=== PATIENT | female | born 1940 | race Caucasian/White ===

== ENCOUNTER → 2017-12-19 09:31 | Outpatient (CLI) | payer MEDICARE, OTHER, SELFPAY ==
[2017-12-19 10:53] LABS: Add Manual Diff / Slide Review NO; Basophils Percent Auto 1.3 % (0-2); Eosinophils Percent Auto 3.3 % (2-4); Hematocrit 36.3 % (36-46); Hemoglobin 11.7 g/dL (12.0-16.0); Lymphocytes Percent Auto 31.2 % (25-40); Mean Corpuscular HGB Conc 32.4 % (30-36); Mean Corpuscular Hemoglobin 30.1 PG (26-34); Mean Corpuscular Volume 92.9 fL (80-100); Monocytes Percent Auto 3.8 % (3-14); Neutrophils Absolute Auto 9200 /uL (3000-5900); Neutrophils Percent Auto 60.4 % (50-75); Platelet Count 296 X10^3/uL (150-400); Red Cell Distribution Width 16.3 % (11.6-14.8); White Blood Cell Count 15.2 X10^3/uL (4.5-11.0)
[2017-12-19 11:41] LABS: Hemoglobin A1C% w Est Avg Glu 8.9 % (4.0-6.0)
[2017-12-19 11:42] LABS: Alanine Aminotransferase 27 IU/L (9-52); Albumin 3.6 g/dL (3.5-5.0); Albumin Globulin Ratio 1.3 (1.0-2.8); Alkaline Phosphatase 105 U/L (38-126); Aspartate Aminotransferase 35 IU/L (14-36); BUN Creatinine Ratio 27.8 (6-22); Bilirubin Total 0.3 mg/dL (0.2-1.3); Blood Urea Nitrogen 25 mg/dL (7-17); Calcium 9.5 mg/dL (8.4-10.2); Carbon Dioxide 26 mmol/L (22-32); Chloride 99 mmol/L (98-107); Estimated Glomerular Filt Rate > 60.0 mL/min (>60); Globulin 2.8 g/dL (1.7-4.1); Glucose 245 mg/dL (80-110); HEMOLYSIS < 15 (0-50); Sodium 138 mmol/L (137-145); Total Protein 6.4 g/dL (6.3-8.2)
[2017-12-19 11:45] LABS: Potassium 5.6 mmol/L (3.4-5.1)
[2017-12-19 12:09] LABS: INR 3.2 (0.9-1.3); Prothrombin Time 34.7 SECONDS (10.1-12.7)
== END ==
PROVIDERS: Visit Provider Family Medicine
DX: I82.409 Acute embolism and thrombosis of unspecified deep veins of unspecified lower extremity (principal); I26.99 Other pulmonary embolism without acute cor pulmonale; Z79.01 Long term (current) use of anticoagulants; I10 Essential (primary) hypertension; E11.9 Type 2 diabetes mellitus without complications; N18.3 Chronic kidney disease, stage 3 (moderate)
CPT/HCPCS: 36415; 80053; 83036; 85025; 85610

== ENCOUNTER → 2017-12-29 14:08 | Outpatient (CLI) | payer MEDICARE, OTHER, SELFPAY ==
[2017-12-29 17:39] LABS: BUN Creatinine Ratio 23.6 (6-22); Blood Urea Nitrogen 26 mg/dL (7-17); Calcium 9.2 mg/dL (8.4-10.2); Carbon Dioxide 25 mmol/L (22-32); Chloride 97 mmol/L (98-107); Cholesterol 224 mg/dL (140-199); Glucose 264 mg/dL (80-110); HDL Cholesterol 44 mg/dL (40-60); HEMOLYSIS < 15 (0-50); LDL Cholesterol Calculated 118 mg/dL (<100); Potassium 5.3 mmol/L (3.4-5.1); Sodium 136 mmol/L (137-145); Triglycerides 308 mg/dL (35-150)
== END ==
PROVIDERS: PCP Family Medicine; Visit Provider Internal Medicine
DX: E11.9 Type 2 diabetes mellitus without complications (principal); I10 Essential (primary) hypertension; E87.5 Hyperkalemia
CPT/HCPCS: 36415; 80048; 80061

== ENCOUNTER → 2018-03-23 13:58 | Outpatient (CLI) | payer MEDICARE, OTHER, SELFPAY ==
[2018-03-23 15:25] LABS: Add Manual Diff / Slide Review NO; Basophils Percent Auto 1.1 % (0-2); Eosinophils Percent Auto 2.5 % (2-4); Hematocrit 35.8 % (36-46); Hemoglobin 11.4 g/dL (12.0-16.0); Mean Corpuscular HGB Conc 31.8 % (30-36); Mean Corpuscular Hemoglobin 28.2 PG (26-34); Mean Corpuscular Volume 88.9 fL (80-100); Monocytes Percent Auto 4.2 % (3-14); Neutrophils Absolute Auto 8600 /uL (3000-5900); Neutrophils Percent Auto 68.2 % (50-75); Platelet Count 236 X10^3/uL (150-400); Red Blood Cell Count 4.03 X10^6/uL (4.0-5.2); Red Cell Distribution Width 16.6 % (11.6-14.8); White Blood Cell Count 12.6 X10^3/uL (4.5-11.0)
[2018-03-23 15:26] LABS: Alanine Aminotransferase 20 IU/L (9-52); Albumin 3.6 g/dL (3.5-5.0); Albumin Globulin Ratio 1.3 (1.0-2.8); Alkaline Phosphatase 59 U/L (38-126); Aspartate Aminotransferase 39 IU/L (14-36); BUN Creatinine Ratio 18.9 (6-22); Bilirubin Total 0.5 mg/dL (0.2-1.3); Blood Urea Nitrogen 17 mg/dL (7-17); Calcium 8.7 mg/dL (8.4-10.2); Carbon Dioxide 28 mmol/L (22-32); Chloride 102 mmol/L (98-107); Cholesterol 115 mg/dL (140-199); Estimated Glomerular Filt Rate > 60.0 mL/min (>60); Globulin 2.8 g/dL (1.7-4.1); Glucose 247 mg/dL (80-110); HDL Cholesterol 33 mg/dL (40-60); LDL Cholesterol Calculated 36 mg/dL (<100); Potassium 4.7 mmol/L (3.4-5.1); Sodium 139 mmol/L (137-145); Total Protein 6.4 g/dL (6.3-8.2); Triglycerides 232 mg/dL (35-150); Uric Acid 3.8 mg/dL (2.5-6.2)
[2018-03-23 15:29] LABS: HEMOLYSIS 72 (0-50)
[2018-03-23 15:56] LABS: Hemoglobin A1C% w Est Avg Glu 7.9 % (4.0-6.0)
== END ==
PROVIDERS: Visit Provider Internal Medicine
DX: M1A.9XX0 Chronic gout, unspecified, without tophus (tophi) (principal); E78.00 Pure hypercholesterolemia, unspecified; N18.3 Chronic kidney disease, stage 3 (moderate); E11.9 Type 2 diabetes mellitus without complications
CPT/HCPCS: 36415; 80053; 80061; 83036; 84550; 85025

== ENCOUNTER → 2018-05-09 13:20 | Outpatient (CLI) | payer MEDICARE, OTHER, SELFPAY ==
[2018-05-09 14:42] LABS: INR 3.1 (0.9-1.3); Prothrombin Time 34.4 SECONDS (10.1-12.7)
== END ==
PROVIDERS: Family Provider Family Medicine; PCP Family Medicine; Visit Provider Family Medicine
DX: I26.99 Other pulmonary embolism without acute cor pulmonale (principal); I82.409 Acute embolism and thrombosis of unspecified deep veins of unspecified lower extremity
CPT/HCPCS: 36415; 85610

== ENCOUNTER → 2018-11-14 11:16 | Outpatient (CLI) | payer MEDICARE, OTHER, SELFPAY ==
[2018-11-14 12:22] LABS: Hemoglobin A1C% w Est Avg Glu 8.3 % (4.0-6.0)
[2018-11-14 12:31] LABS: BUN Creatinine Ratio 22.2 (6-22); Blood Urea Nitrogen 20 mg/dL (7-17); Calcium 9.5 mg/dL (8.4-10.2); Carbon Dioxide 32 mmol/L (22-32); Chloride 98 mmol/L (98-107); Estimated Glomerular Filt Rate > 60.0 mL/min (>60); Glucose 255 mg/dL (80-110); HEMOLYSIS < 15 (0-50); Sodium 138 mmol/L (137-145); Uric Acid 3.8 mg/dL (2.5-6.2)
[2018-11-14 12:34] LABS: Potassium 5.4 mmol/L (3.4-5.1)
[2018-11-14 12:46] LABS: Free T4, Direct Thyroxine 1.61 ng/dL (0.78-2.19)
[2018-11-14 12:48] LABS: Creatinine Urine Random 101.8 mg/dL
[2018-11-14 12:52] LABS: Microalbumi Creatinin Ratio Ur 76.6 ug/mg CR (<30); Microalbumin Urine Random 7.8 mg/dL (0-1.6)
[2018-11-14 13:00] LABS: Thyroid Stimulating Hormone 1.11 uIU/mL (0.47-4.68)
== END ==
PROVIDERS: PCP Student in an Organized Health Care Education/Training Program; Visit Provider Student in an Organized Health Care Education/Training Program
DX: E11.9 Type 2 diabetes mellitus without complications (principal); E78.00 Pure hypercholesterolemia, unspecified; M1A.9XX0 Chronic gout, unspecified, without tophus (tophi); N18.3 Chronic kidney disease, stage 3 (moderate); E03.9 Hypothyroidism, unspecified; I12.9 Hypertensive chronic kidney disease with stage 1 through stage 4 chronic kidney disease, or unspecified chronic kidney disease
CPT/HCPCS: 36415; 80048; 82043; 82306; 82570; 83036; 84439; 84443; 84550

== ENCOUNTER → 2018-11-17 13:35 | Outpatient (CLI) | payer MEDICARE, OTHER, SELFPAY | PROVIDERS: PCP Student in an Organized Health Care Education/Training Program; Visit Provider Student in an Organized Health Care Education/Training Program | DX: Z13.820 Encounter for screening for osteoporosis (principal); Z78.0 Asymptomatic menopausal state; E11.9 Type 2 diabetes mellitus without complications; Z90.722 Acquired absence of ovaries, bilateral; Z91.89 Other specified personal risk factors, not elsewhere classified | CPT/HCPCS: 77080; 77081 ==

== ENCOUNTER → 2019-02-27 11:11 | Outpatient (CLI) | payer MEDICARE, OTHER, SELFPAY ==
[2019-02-27 12:17] LABS: Hemoglobin A1C% w Est Avg Glu 6.3 % (4.0-6.0)
[2019-02-27 12:20] LABS: Creatinine Urine Random 171.3 mg/dL
[2019-02-27 12:25] LABS: Microalbumi Creatinin Ratio Ur 40.2 ug/mg CR (<30); Microalbumin Urine Random 6.9 mg/dL (0-1.6)
[2019-02-27 12:26] LABS: BUN Creatinine Ratio 25.6 (6-22); Blood Urea Nitrogen 23 mg/dL (7-17); Carbon Dioxide 27 mmol/L (22-32); Chloride 103 mmol/L (98-107); Estimated Glomerular Filt Rate > 60.0 mL/min (>60); Glucose 231 mg/dL (80-110); HEMOLYSIS < 15 (0-50); Potassium 4.3 mmol/L (3.4-5.1); Sodium 141 mmol/L (137-145)
== END ==
PROVIDERS: PCP Student in an Organized Health Care Education/Training Program; Visit Provider Student in an Organized Health Care Education/Training Program
DX: E11.9 Type 2 diabetes mellitus without complications (principal); N18.3 Chronic kidney disease, stage 3 (moderate)
CPT/HCPCS: 36415; 80048; 82043; 82570; 83036

== ENCOUNTER → 2019-11-20 13:35 | Outpatient (CLI) | payer MEDICARE, OTHER, SELFPAY ==
[2019-11-20 14:44] LABS: Hemoglobin A1C% w Est Avg Glu 7.1 % (4.0-6.0)
[2019-11-20 16:09] LABS: BUN Creatinine Ratio 27.7 (6-22); Blood Urea Nitrogen 23 mg/dL (7-17); Calcium 9.3 mg/dL (8.4-10.2); Carbon Dioxide 29 mmol/L (22-32); Chloride 101 mmol/L (98-107); Estimated Glomerular Filt Rate > 60.0 mL/min (>60); Glucose 164 mg/dL (80-110); HEMOLYSIS < 15 (0-50); Potassium 4.8 mmol/L (3.4-5.1); Sodium 136 mmol/L (137-145)
== END ==
PROVIDERS: PCP Student in an Organized Health Care Education/Training Program; Referring Provider Student in an Organized Health Care Education/Training Program; Visit Provider Student in an Organized Health Care Education/Training Program
DX: E11.9 Type 2 diabetes mellitus without complications (principal); I10 Essential (primary) hypertension
CPT/HCPCS: 36415; 80048; 83036

== ENCOUNTER → 2020-07-31 11:21 | Outpatient (CLI) | payer MEDICARE, OTHER, SELFPAY ==
[2020-07-31 13:44] LABS: Hemoglobin A1C% w Est Avg Glu 6.8 % (4.0-6.0)
[2020-07-31 14:11] LABS: BUN Creatinine Ratio 27.7 (6-22); Blood Urea Nitrogen 23 mg/dL (7-17); Carbon Dioxide 31 mmol/L (22-32); Chloride 103 mmol/L (98-107); Estimated Glomerular Filt Rate > 60.0 mL/min (>60); Glucose 136 mg/dL (80-110); HEMOLYSIS < 15 (0-50); Potassium 4.7 mmol/L (3.4-5.1); Sodium 139 mmol/L (137-145)
== END ==
PROVIDERS: PCP Student in an Organized Health Care Education/Training Program; Referring Provider Student in an Organized Health Care Education/Training Program; Visit Provider Student in an Organized Health Care Education/Training Program
DX: E11.9 Type 2 diabetes mellitus without complications (principal)
CPT/HCPCS: 36415; 80048; 83036

== ENCOUNTER 2021-01-02 03:36 | Observation (INO) | payer MEDICARE, OTHER, SELFPAY ==
[2021-01-02] VITALS (18 sets, daily range): BP systolic 128–184; BP diastolic 53–109; PULSE 74–97; RESP 13–28; TEMP 36.3–36.4; O2SAT 94–99; BMI 46.0
--- NOTE | 2021-01-02 03:49 | DI.CT.S_ITS ---
PROCEDURE: CT HEAD/BRAIN WO CON INDICATIONS: fall on coumadin TECHNIQUE: Noncontrast 4.5 mm thick angled axial sections acquired from the foramen magnum to the vertex, with coronal and sagittal reformats. For radiation dose reduction, the following was used: automated exposure control, adjustment of mA and/or kV according to patient size. COMPARISON: [facility], CT, HEAD WITHOUT CONTRAST, 07/02/2014, 18:41. FINDINGS: Image quality: Mildly degraded by patient motion during image acquisition. CSF spaces: Basal cisterns are patent. No extra-axial fluid collections. The ventricles are symmetric in size and shape. Brain: No intracranial bleeds or masses. There is cerebral volume loss for age, with resultant ventricular and sulcal prominence. There are periventricular and deep white matter chronic small vessel ischemic changes. There is intracranial internal carotid artery atherosclerosis. Skull and face: Calvarium and visualized facial bones appear intact, without suspicious lesions. Sinuses: Visualized sinuses and mastoids are clear. IMPRESSION: Moderate microvascular atherosclerotic change present over each hemisphere but no trauma found. No intracranial hemorrhage suspected. Dictated by: Lan Arteaga M.D. on 01/02/2021 at 9:41 Approved by: Lan Arteaga M.D. on 01/02/2021 at 9:42
--- NOTE | 2021-01-02 03:49 | DI.RAD.S_ITS ---
PROCEDURE: XR HIP W PEL IF DONE LT 2V INDICATIONS: fall pain TECHNIQUE: AP pelvis with lateral view(s) of the left hip(s). COMPARISON: None. FINDINGS: Bones: No acute fracture identified although exam sensitivity degraded by severe arthritic FX. Severe right hip joint degeneration. Moderate left hip osteoarthritis. Lower lumbar spondylosis and facet arthropathy. Soft tissues: The visualized bowel gas pattern is normal. No suspicious soft tissue calcifications. IMPRESSION: No fracture. If the patient's pain or other symptoms persist, consider further evaluation with MRI. Findings concordant with preliminary study interpretation. Dictated by: Venu Marroquin M.D. on 01/02/2021 at 8:55 Approved by: Venu Marroquin M.D. on 01/02/2021 at 8:56
[2021-01-02 05:08] LABS: Add Manual Diff / Slide Review NO; Basophils Absolute Auto 100 /uL (0-100); Basophils Percent Auto 0.5 % (0-2); Eosinophils Absolute Auto 300 /uL (0-450); Eosinophils Percent Auto 1.9 % (2-4); Hematocrit 36.2 % (36-46); Hemoglobin 11.8 g/dL (12.0-16.0); Lymphocytes Absolute Auto 3500 /uL (1100-4500); Lymphocytes Percent Auto 23.6 % (25-40); Mean Corpuscular HGB Conc 32.6 % (30-36); Mean Corpuscular Hemoglobin 28.1 PG (26-34); Mean Corpuscular Volume 86.4 fL (80-100); Monocytes Absolute Auto 900 /uL (0-900); Neutrophils Absolute Auto 10000 /uL (1500-7000); Platelet Count 299 X10^3/uL (150-400); Red Blood Cell Count 4.19 X10^6/uL (4.0-5.2); White Blood Cell Count 14.7 X10^3/uL (4.5-11.0)
[2021-01-02 05:11] LABS: INR 1.1 (0.9-1.3); Prothrombin Time 11.9 SECONDS (10.1-12.7)
[2021-01-02 05:13] LABS: Lactate (Lactic Acid) 1.8 mmol/L (0.7-2.1); PTT Partial Thromboplastin Tim 29 SECONDS (26.4-36.2)
[2021-01-02 05:14] LABS: Alanine Aminotransferase 14 IU/L (<35); Albumin 3.7 g/dL (3.5-5.0); Albumin Globulin Ratio 1.3 (1.0-2.8); Alkaline Phosphatase 77 U/L (38-126); Aspartate Aminotransferase 34 IU/L (14-36); BUN Creatinine Ratio 23.5 (6-22); Bilirubin Total 0.4 mg/dL (0.2-1.3); Blood Urea Nitrogen 24 mg/dL (7-17); Calcium 9.3 mg/dL (8.4-10.2); Carbon Dioxide 28 mmol/L (22-32); Chloride 102 mmol/L (98-107); Creatine Kinase 123 U/L (30-135); Globulin 2.8 g/dL (1.7-4.1); Glucose 124 mg/dL (80-110); HEMOLYSIS < 15 (0-50); Potassium 4.4 mmol/L (3.4-5.1); Sodium 137 mmol/L (137-145); Total Protein 6.5 g/dL (6.3-8.2)
[2021-01-02 05:26] LABS: Troponin I < 0.012 ng/mL (0.01-0.034)
[2021-01-02 05:29] LABS: CKMB % Relative Index 1.1 % (1.5-5.0)
[2021-01-02 05:41] LABS: Procalcitonin 0.12 ng/mL (<0.5)
--- NOTE | 2021-01-02 05:57 | ED_ITS ---
HPI - Fall <Nelia Mustafa, DO - Last Filed: 01/03/21 18:59> General Chief Complaint: Fall Stated Complaint: Slide to floor - Bilateral knee pain Time Seen by Provider: 01/02/21 03:44 Source: patient Mode of arrival: Ambulatory Limitations: altered mental status History of Present Illness HPI Narrative: Patient is an 80-year-old female with history of pulmonary embolism on Coumadin and dementia presenting with fall from home. She was trying to get out of bed this morning to use the restroom but slipped out of bed and landed on her knees. She was unable to get up. There is no head injury. She was found incontinent of stool and urine. She is extremely confused. And unable to provide any history. She is complaining of left leg pain. As well as knee pain although medics state that knee pain has gotten better since she has been in the [place]. To records she has had incontinence of urine and stool and refuses to wear a diaper and this is recorded in much. At baseline she is barely able to transfer from bed to chair and requires significant assistance from her . I have spoken with does not seem that they have assistance at home MD complaint: fall Onset (ago): hour(s) Fall from: out of bed Fall witnessed: yes, by family Place fall occurred: home Loss of consciousness: none Related Data Previous Rx's Medication Instructions Recorded blood sugar diagnostic #100 each 09/18/18 Truplus Lancets #100 each 09/21/18 aspirin 81 mg tablet,delayed 81 mg PO DAILY #90 tab 04/09/20 release levothyroxine 150 mcg tablet 150 mcg PO QAM #90 tab 04/09/20 lisinopril 20 mg tablet 20 mg PO QDAY #90 tab 04/09/20 metformin 500 mg tablet,extended 1,500 mg PO DAILY #270 tab 04/09/20 release 24 hr glipizide 10 mg tablet, extended 10 mg PO BID #180 tab 10/20/20 release 24 hr levofloxacin 250 mg PO DAILY #6 tab 01/03/21 olanzapine 2.5 mg PO BID #30 tab 01/03/21 Allergies Allergy/AdvReac Type Severity Reaction Status Date / Time atorvastatin [ATORVASTATIN] Allergy Mild PURITIS IN Verified 10/06/20 10:52 LOWER EXTREMITIES erythromycin base Allergy Mild YEAST Verified 10/06/20 10:52 [From ERYTHROCIN] INFECTION rosuvastatin [ROSUVASTATIN] Allergy Mild PAIN IN Verified 10/06/20 10:52 LOWER EXTREMITIES simvastatin [SIMVASTATIN] Allergy Mild PAIN IN Verified 10/06/20 10:52 LOWER EXTREMITIES Review of Systems <Nelia Mustafa DO - Last Filed: 01/03/21 18:59> Review of Systems Narrative: Dementia ROS Unobtainable: Unobtainable due to mental condition Patient History <Nelia Mustafa DO - Last Filed: 01/03/21 18:59> Medical History Depression Diabetes mellitus Hyperlipidemia Hypertension PMR (polymyalgia rheumatica) Pulmonary embolism (2009) Warfarin anticoagulation (2011) Surgical History S/P surgery on nasal septum (1969) Status post breast biopsy (1969) Status post cholecystectomy (1991) Status post hysterectomy with oophorectomy (1993) Family History Other Factor V Leiden Social History household members: spouse Smoking Status: Never smoker Smoking Status: Never smoker Substance Use Type: does not use Exam <Nelia Mustafa DO - Last Filed: 01/03/21 18:59> Initial Vital Signs Initial Vital Signs: Vital Signs Temperature 97.6 F 01/02/21 03:53 Pulse Rate 78 01/02/21 03:53 Respiratory Rate 14 01/02/21 03:53 Blood Pressure 136/109 H 01/02/21 03:53 Pulse Oximetry 99 01/02/21 03:53 GENERAL: 80-year-old female with poor hygiene, alert HEENT: Head atraumatic,EOMI, pupils reactive, face symmetric, moist mucous membranes CARDIOVASCULAR: Regular rate and rhythm without murmurs, rubs or gallops. RESPIRATORY: Breath sounds equal bilaterally, no wheezes rales or rhonchi. ABDOMEN: Soft, nontender. Normoactive bowel sounds all 4 quadrants. No guarding or rebound. EXTREMITIES: Normal range of motion, no clubbing or edema. Neurovascularly intact Pain in left hip legs are of equal length distal pedal pulse is strong NEUROLOGICAL: Moves all extremities manager of pmo strength equal bilaterally no facial droop confused alert to person SKIN: Warm, dry, no laceration, no petechiae, no rashes or lesions. <Suly Guillen MD - Last Filed: 01/02/21 08:57> Initial Vital Signs Initial Vital Signs: Vital Signs Temperature 97.6 F 01/02/21 03:53 Pulse Rate 78 01/02/21 03:53 Respiratory Rate 14 01/02/21 03:53 Blood Pressure 136/109 H 01/02/21 03:53 Pulse Oximetry 99 01/02/21 03:53 Course <Nelia Mustafa DO - Last Filed: 01/03/21 18:59> Orders Ordered: Discontinued Medications Acetaminophen (Acetaminophen 325 Mg Tablet) 650 mg PO Q6HR PRN PRN Reason: Fever/Mild Pain (1-3) Aspirin (Aspirin Ec 81 Mg Tablet) 81 mg PO DAILY [facility] Last Admin: 01/03/21 08:42 Dose: 81 mg Documented by: AFRICHARD Enoxaparin Sodium (Enoxaparin 40 Mg/0.4 Ml Syringe) 40 mg SUBCUT DAILY [facility] Last Admin: 01/03/21 08:40 Dose: 40 mg Documented by: MADDIE Enoxaparin Sodium (Enoxaparin 40 Mg/0.4 Ml Syringe) 40 mg SUBCUT BID [facility] Ceftriaxone Sodium 2,000 mg/ (Sodium Chloride) 100 mls @ 200 mls/hr IV NOW ONE Stop: 01/02/21 08:30 Last Infusion: 01/02/21 10:00 Dose: 0 mls/hr Documented by: Infusion: 01/02/21 09:36 Dose: 200 mls/hr Documented by: Admin: 01/02/21 09:16 Dose: 200 mls/hr Documented by: ASHOK Sodium Chloride (Normal Saline 0.9%) 1,000 mls @ 100 mls/hr IV CONT [facility] Last Infusion: 01/02/21 17:52 Dose: 0 mls/hr Documented by: Infusion: 01/02/21 13:25 Dose: 100 mls/hr Documented by: Infusion: 01/02/21 09:36 Dose: 150 mls/hr Documented by: Admin: 01/02/21 09:17 Dose: 150 mls/hr Documented by: ASHOK Ceftriaxone Sodium 1,000 mg/ (Sodium Chloride) 100 mls @ 200 mls/hr IV Q24H [facility] Insulin Human Lispro (Insulin Lispro 100 Unit/Ml 3ml Vial) 0 unit SUBCUT ACHS GRACE; Protocol Last Admin: 01/03/21 13:15 Dose: Not Given Documented by: Admin: 01/03/21 08:36 Dose: Not Given Documented by: Admin: 01/02/21 22:02 Dose: Not Given Documented by: Admin: 01/02/21 16:50 Dose: Not Given Documented by: Admin: 01/02/21 12:51 Dose: Not Given Documented by: WILLIAM Levofloxacin (Levofloxacin 250 Mg Tablet) 250 mg PO DAILY [facility] Last Admin: 01/03/21 08:40 Dose: 250 mg Documented by: Admin: 01/02/21 12:55 Dose: 250 mg Documented by: WILLIAM Levothyroxine Sodium (Levothyroxine 150 Mcg Tablet) 150 mcg PO 0600 [facility] Last Admin: 01/03/21 05:52 Dose: 150 mcg Documented by: GRANT Lidocaine (Lidocaine Patch 1 Each Adh..Patch) 1 each TOP DAILY [facility] Last Admin: 01/03/21 08:46 Dose: 1 each Documented by: MADDIE Lidocaine (Remove Lidocaine Patch) 1 each TOP BEDTIME [facility] Lisinopril (Lisinopril 20 Mg Tablet) 20 mg PO DAILY [facility] Last Admin: 01/03/21 08:46 Dose: 20 mg Documented by: MADDIE Lorazepam (Lorazepam 1 Mg Tablet) 1 mg PO Q6HR PRN PRN Reason: Agitation Last Admin: 01/02/21 12:53 Dose: 1 mg Documented by: WILLIAM Naloxone HCl (Naloxone 0.4 Mg/Ml Vial) 0.2 mg IV Q2MIN PRN PRN Reason: Opiate Reversal Olanzapine (Olanzapine 2.5 Mg Tablet) 2.5 mg PO BID PRN PRN Reason: Agitation Last Admin: 01/02/21 18:59 Dose: 2.5 mg Documented by: OLGA Olanzapine (Olanzapine 2.5 Mg Tablet) 2.5 mg PO BID [facility] Last Admin: 01/03/21 08:42 Dose: 2.5 mg Documented by: Admin: 01/02/21 22:03 Dose: Not Given Documented by: KIRKT Vital Signs Vital signs: Vital Signs - 8 hr 01/02/21 03:53 Temperature 97.6 F Pulse Rate 78 Respiratory Rate 14 Blood Pressure 136/109 H Pulse Oximetry 99 <Suly Guillen MD - Last Filed: 01/02/21 08:57> Orders Ordered: Discontinued Medications Acetaminophen (Acetaminophen 325 Mg Tablet) 650 mg PO Q6HR PRN PRN Reason: Fever/Mild Pain (1-3) Aspirin (Aspirin Ec 81 Mg Tablet) 81 mg PO DAILY [facility] Last Admin: 01/03/21 08:42 Dose: 81 mg Documented by: AFEWBRIGETTE Enoxaparin Sodium (Enoxaparin 40 Mg/0.4 Ml Syringe) 40 mg SUBCUT DAILY [facility] Last Admin: 01/03/21 08:40 Dose: 40 mg Documented by: MADDIE Enoxaparin Sodium (Enoxaparin 40 Mg/0.4 Ml Syringe) 40 mg SUBCUT BID [facility] Ceftriaxone Sodium 2,000 mg/ (Sodium Chloride) 100 mls @ 200 mls/hr IV NOW ONE Stop: 01/02/21 08:30 Last Infusion: 01/02/21 10:00 Dose: 0 mls/hr Documented by: Infusion: 01/02/21 09:36 Dose: 200 mls/hr Documented by: Admin: 01/02/21 09:16 Dose: 200 mls/hr Documented by: ASHOK Sodium Chloride (Normal Saline 0.9%) 1,000 mls @ 100 mls/hr IV CONT [facility] Last Infusion: 01/02/21 17:52 Dose: 0 mls/hr Documented by: Infusion: 01/02/21 13:25 Dose: 100 mls/hr Documented by: Infusion: 01/02/21 09:36 Dose: 150 mls/hr Documented by: Admin: 01/02/21 09:17 Dose: 150 mls/hr Documented by: ASHOK Ceftriaxone Sodium 1,000 mg/ (Sodium Chloride) 100 mls @ 200 mls/hr IV Q24H [facility] Insulin Human Lispro (Insulin Lispro 100 Unit/Ml 3ml Vial) 0 unit SUBCUT ACHS [facility]; Protocol Last Admin: 01/03/21 13:15 Dose: Not Given Documented by: Admin: 01/03/21 08:36 Dose: Not Given Documented by: Admin: 01/02/21 22:02 Dose: Not Given Documented by: Admin: 01/02/21 16:50 Dose: Not Given Documented by: Admin: 01/02/21 12:51 Dose: Not Given Documented by: WILLIAM Levofloxacin (Levofloxacin 250 Mg Tablet) 250 mg PO DAILY [facility] Last Admin: 01/03/21 08:40 Dose: 250 mg Documented by: Admin: 01/02/21 12:55 Dose: 250 mg Documented by: WILLIAM Levothyroxine Sodium (Levothyroxine 150 Mcg Tablet) 150 mcg PO 0600 [facility] Last Admin: 01/03/21 05:52 Dose: 150 mcg Documented by: GRANT Lidocaine (Lidocaine Patch 1 Each Adh..Patch) 1 each TOP DAILY [facility] Last Admin: 01/03/21 08:46 Dose: 1 each Documented by: MADDIE Lidocaine (Remove Lidocaine Patch) 1 each TOP BEDTIME [facility] Lisinopril (Lisinopril 20 Mg Tablet) 20 mg PO DAILY [facility] Last Admin: 01/03/21 08:46 Dose: 20 mg Documented by: MADDIE Lorazepam (Lorazepam 1 Mg Tablet) 1 mg PO Q6HR PRN PRN Reason: Agitation Last Admin: 01/02/21 12:53 Dose: 1 mg Documented by: WILLIAM Naloxone HCl (Naloxone 0.4 Mg/Ml Vial) 0.2 mg IV Q2MIN PRN PRN Reason: Opiate Reversal Olanzapine (Olanzapine 2.5 Mg Tablet) 2.5 mg PO BID PRN PRN Reason: Agitation Last Admin: 01/02/21 18:59 Dose: 2.5 mg Documented by: OLGA Olanzapine (Olanzapine 2.5 Mg Tablet) 2.5 mg PO BID [facility] Last Admin: 01/03/21 08:42 Dose: 2.5 mg Documented by: Admin: 01/02/21 22:03 Dose: Not Given Documented by: OLGA Vital Signs Vital signs: Vital Signs - 8 hr 01/02/21 03:53 Temperature 97.6 F Pulse Rate 78 Respiratory Rate 14 Blood Pressure 136/109 H Pulse Oximetry 99 MDM - Fall <Nelia Moon DO - Last Filed: 01/03/21 18:59> Lab Data Attestation: I reviewed the patient's lab results. Result diagrams: 01/03/21 05:15 01/03/21 05:15 Labs: Lab Results 01/02/21 01/02/21 01/02/21 Range/Units 04:50 04:50 04:50 WBC 14.7 H (4.5-11.0) X10^3/uL RBC 4.19 (4.0-5.2) X10^6/uL Hgb 11.8 L (12.0-16.0) g/dL Hct 36.2 (36-46) % MCV 86.4 (80-100) fL MCH 28.1 (26-34) PG MCHC 32.6 (30-36) % RDW 16.0 H (11.6-14.8) % Plt Count 299 (150-400) X10^3/uL Neut % (Auto) 68.0 (50-75) % Lymph % (Auto) 23.6 L (25-40) % [place] % (Auto) 6.0 (3-14) % Eos % (Auto) 1.9 L (2-4) % Baso % (Auto) 0.5 (0-2) % Neut # (Auto) 36535 H (5947-1562) /uL Lymph # (Auto) 3500 (3915-1266) /uL [place] # (Auto) 900 (0-900) /uL Eos # (Auto) 300 (0-450) /uL Baso # (Auto) 100 (0-100) /uL PT 11.9 (10.1-12.7) SECONDS INR 1.1 (0.9-1.3) APTT 29 (26.4-36.2) SECONDS Sodium 137 (137-145) mmol/L Potassium 4.4 (3.4-5.1) mmol/L Chloride 102 (98-107) mmol/L Carbon Dioxide 28 (22-32) mmol/L BUN 24 H (7-17) mg/dL Creatinine 1.02 (0.52-1.04) mg/dL Estimated GFR 52.0 L (>60) mL/min BUN/Creatinine Ratio 23.5 H (6-22) Glucose 124 H (80-110) mg/dL Lactate (0.7-2.1) mmol/L Calcium 9.3 (8.4-10.2) mg/dL Total Bilirubin 0.4 (0.2-1.3) mg/dL AST 34 (14-36) IU/L ALT 14 (<35) IU/L Alkaline Phosphatase 77 (38-126) U/L Total Creatine Kinase 123 (30-135) U/L CK-MB (CK-2) 1.40 (<2.37) ng/mL CK-MB (CK-2) Rel Index 1.1 L (1.5-5.0) % Troponin I < 0.012 (0.01-0.034) ng/mL Total Protein 6.5 (6.3-8.2) g/dL Albumin 3.7 (3.5-5.0) g/dL Globulin 2.8 (1.7-4.1) g/dL Albumin/Globulin Ratio 1.3 (1.0-2.8) Procalcitonin (<0.5) ng/mL Urine Color Urine Appearance Urine pH (4.5-8.0) Ur Specific [place] (1.000-1.035) Urine Protein (Negative) Urine Glucose (UA) (Negative) g/dL Urine Ketones (NEGATIVE) Urine Occult Blood (Negative) Urine Nitrate (Negative) Urine Bilirubin (NEGATIVE) Urine Urobilinogen (0.2) E.U./dL Ur Leukocyte Esterase (NEGATIVE) Urine RBC (0-5/HPF) Urine WBC (0-5/HPF) Ur Squamous Epith Cells (0-5/HPF) Urine Bacteria (None) Ur Culture Indicated? SARS-CoV-2 (PCR) (Negative) 01/02/21 01/02/21 01/02/21 Range/Units 04:50 04:50 08:27 WBC (4.5-11.0) X10^3/uL RBC (4.0-5.2) X10^6/uL Hgb (12.0-16.0) g/dL Hct (36-46) % MCV (80-100) fL MCH (26-34) PG MCHC (30-36) % RDW (11.6-14.8) % Plt Count (150-400) X10^3/uL Neut % (Auto) (50-75) % Lymph % (Auto) (25-40) % [place] % (Auto) (3-14) % Eos % (Auto) (2-4) % Baso % (Auto) (0-2) % Neut # (Auto) (6084-6494) /uL Lymph # (Auto) (0803-0738) /uL [place] # (Auto) (0-900) /uL Eos # (Auto) (0-450) /uL Baso # (Auto) (0-100) /uL PT (10.1-12.7) SECONDS INR (0.9-1.3) APTT (26.4-36.2) SECONDS Sodium (137-145) mmol/L Potassium (3.4-5.1) mmol/L Chloride (98-107) mmol/L Carbon Dioxide (22-32) mmol/L BUN (7-17) mg/dL Creatinine (0.52-1.04) mg/dL Estimated GFR (>60) mL/min BUN/Creatinine Ratio (6-22) Glucose (80-110) mg/dL Lactate 1.8 (0.7-2.1) mmol/L Calcium (8.4-10.2) mg/dL Total Bilirubin (0.2-1.3) mg/dL AST (14-36) IU/L ALT (<35) IU/L Alkaline Phosphatase (38-126) U/L Total Creatine Kinase (30-135) U/L CK-MB (CK-2) (<2.37) ng/mL CK-MB (CK-2) Rel Index (1.5-5.0) % Troponin I (0.01-0.034) ng/mL Total Protein (6.3-8.2) g/dL Albumin (3.5-5.0) g/dL Globulin (1.7-4.1) g/dL Albumin/Globulin Ratio (1.0-2.8) Procalcitonin 0.12 (<0.5) ng/mL Urine Color Urine Appearance Urine pH (4.5-8.0) Ur Specific [place] (1.000-1.035) Urine Protein (Negative) Urine Glucose (UA) (Negative) g/dL Urine Ketones (NEGATIVE) Urine Occult Blood (Negative) Urine Nitrate (Negative) Urine Bilirubin (NEGATIVE) Urine Urobilinogen (0.2) E.U./dL Ur Leukocyte Esterase (NEGATIVE) Urine RBC (0-5/HPF) Urine WBC (0-5/HPF) Ur Squamous Epith Cells (0-5/HPF) Urine Bacteria (None) Ur Culture Indicated? SARS-CoV-2 (PCR) Negative (Negative) 01/02/21 Range/Units 08:27 WBC (4.5-11.0) X10^3/uL RBC (4.0-5.2) X10^6/uL Hgb (12.0-16.0) g/dL Hct (36-46) % MCV (80-100) fL MCH (26-34) PG MCHC (30-36) % RDW (11.6-14.8) % Plt Count (150-400) X10^3/uL Neut % (Auto) (50-75) % Lymph % (Auto) (25-40) % [place] % (Auto) (3-14) % Eos % (Auto) (2-4) % Baso % (Auto) (0-2) % Neut # (Auto) (4384-8028) /uL Lymph # (Auto) (5913-2026) /uL [place] # (Auto) (0-900) /uL Eos # (Auto) (0-450) /uL Baso # (Auto) (0-100) /uL PT (10.1-12.7) SECONDS INR (0.9-1.3) APTT (26.4-36.2) SECONDS Sodium (137-145) mmol/L Potassium (3.4-5.1) mmol/L Chloride (98-107) mmol/L Carbon Dioxide (22-32) mmol/L BUN (7-17) mg/dL Creatinine (0.52-1.04) mg/dL Estimated GFR (>60) mL/min BUN/Creatinine Ratio (6-22) Glucose (80-110) mg/dL Lactate (0.7-2.1) mmol/L Calcium (8.4-10.2) mg/dL Total Bilirubin (0.2-1.3) mg/dL AST (14-36) IU/L ALT (<35) IU/L Alkaline Phosphatase (38-126) U/L Total Creatine Kinase (30-135) U/L CK-MB (CK-2) (<2.37) ng/mL CK-MB (CK-2) Rel Index (1.5-5.0) % Troponin I (0.01-0.034) ng/mL Total Protein (6.3-8.2) g/dL Albumin (3.5-5.0) g/dL Globulin (1.7-4.1) g/dL Albumin/Globulin Ratio (1.0-2.8) Procalcitonin (<0.5) ng/mL Urine Color Yellow Urine Appearance Sl cloudy Urine pH 6.5 (4.5-8.0) Ur Specific [place] 1.010 (1.000-1.035) Urine Protein Negative (Negative) Urine Glucose (UA) Negative (Negative) g/dL Urine Ketones Negative (NEGATIVE) Urine Occult Blood 3+ H (Negative) Urine Nitrate Negative (Negative) Urine Bilirubin Negative (NEGATIVE) Urine Urobilinogen 0.2 (0.2) E.U./dL Ur Leukocyte Esterase Trace H (NEGATIVE) Urine RBC 10-30/hpf H (0-5/HPF) Urine WBC 1-5/hpf (0-5/HPF) Ur Squamous Epith Cells 1-5 /hpf (0-5/HPF) Urine Bacteria Many (>30) H (None) Ur Culture Indicated? Specimen cultured SARS-CoV-2 (PCR) (Negative) Imaging Data CT scan - head: Radiologist's Impression: No acute intracranial process. Sensate and small vessel ischemic changes Extremity x-ray #1: Radiologist's Impression: Left hip: No acute bony abnormality, degen erative changes ECG Data Attestation: I personally reviewed and interpreted this ECG as follows: Prior ECG tracings: available for review Interpretation: Rhythm rate 79 p.r. interval 130 QRS [address] changes MDM Narrative Medical decision making narrative: Patient has leukocytosis awaiting urinalysis but other blood work is overall reassuring. She is covered is in stool and urine. Apparently this happened at home as well as. When attempted ambulation trial patient said I do not know how.She is given a walker and is still on able is to ambulate. According to primary care provider notes she requires significant assistance is not clear that they have home health. Initially spoke with hospitalist request as social Work and Physical therapy consult prior to admission The patient signed out to Dr. Guillen for further management <Suly Guillen MD - Last Filed: 01/02/21 08:57> Medical Records Attestation: I reviewed the patient's medical records. Lab Data Attestation: I reviewed the patient's lab results. Labs: Lab Results 01/02/21 01/02/21 01/02/21 Range/Units 04:50 04:50 04:50 WBC 14.7 H (4.5-11.0) X10^3/uL RBC 4.19 (4.0-5.2) X10^6/uL Hgb 11.8 L (12.0-16.0) g/dL Hct 36.2 (36-46) % MCV 86.4 (80-100) fL MCH 28.1 (26-34) PG MCHC 32.6 (30-36) % RDW 16.0 H (11.6-14.8) % Plt Count 299 (150-400) X10^3/uL Neut % (Auto) 68.0 (50-75) % Lymph % (Auto) 23.6 L (25-40) % [place] % (Auto) 6.0 (3-14) % Eos % (Auto) 1.9 L (2-4) % Baso % (Auto) 0.5 (0-2) % Neut # (Auto) 23505 H (6465-6446) /uL Lymph # (Auto) 3500 (3667-5287) /uL [place] # (Auto) 900 (0-900) /uL Eos # (Auto) 300 (0-450) /uL Baso # (Auto) 100 (0-100) /uL PT 11.9 (10.1-12.7) SECONDS INR 1.1 (0.9-1.3) APTT 29 (26.4-36.2) SECONDS Sodium 137 (137-145) mmol/L Potassium 4.4 (3.4-5.1) mmol/L Chloride 102 (98-107) mmol/L Carbon Dioxide 28 (22-32) mmol/L BUN 24 H (7-17) mg/dL Creatinine 1.02 (0.52-1.04) mg/dL Estimated GFR 52.0 L (>60) mL/min BUN/Creatinine Ratio 23.5 H (6-22) Glucose 124 H (80-110) mg/dL Lactate (0.7-2.1) mmol/L Calcium 9.3 (8.4-10.2) mg/dL Total Bilirubin 0.4 (0.2-1.3) mg/dL AST 34 (14-36) IU/L ALT 14 (<35) IU/L Alkaline Phosphatase 77 (38-126) U/L Total Creatine Kinase 123 (30-135) U/L CK-MB (CK-2) 1.40 (<2.37) ng/mL CK-MB (CK-2) Rel Index 1.1 L (1.5-5.0) % Troponin I < 0.012 (0.01-0.034) ng/mL Total Protein 6.5 (6.3-8.2) g/dL Albumin 3.7 (3.5-5.0) g/dL Globulin 2.8 (1.7-4.1) g/dL Albumin/Globulin Ratio 1.3 (1.0-2.8) Procalcitonin (<0.5) ng/mL Urine Color Urine Appearance Urine pH (4.5-8.0) Ur Specific [place] (1.000-1.035) Urine Protein (Negative) Urine Glucose (UA) (Negative) g/dL Urine Ketones (NEGATIVE) Urine Occult Blood (Negative) Urine Nitrate (Negative) Urine Bilirubin (NEGATIVE) Urine Urobilinogen (0.2) E.U./dL Ur Leukocyte Esterase (NEGATIVE) Urine RBC (0-5/HPF) Urine WBC (0-5/HPF) Ur Squamous Epith Cells (0-5/HPF) Urine Bacteria (None) Ur Culture Indicated? SARS-CoV-2 (PCR) (Negative) 01/02/21 01/02/21 01/02/21 Range/Units 04:50 04:50 08:27 WBC (4.5-11.0) X10^3/uL RBC (4.0-5.2) X10^6/uL Hgb (12.0-16.0) g/dL Hct (36-46) % MCV (80-100) fL MCH (26-34) PG MCHC (30-36) % RDW (11.6-14.8) % Plt Count (150-400) X10^3/uL Neut % (Auto) (50-75) % Lymph % (Auto) (25-40) % [place] % (Auto) (3-14) % Eos % (Auto) (2-4) % Baso % (Auto) (0-2) % Neut # (Auto) (2034-0782) /uL Lymph # (Auto) (2689-7077) /uL [place] # (Auto) (0-900) /uL Eos # (Auto) (0-450) /uL Baso # (Auto) (0-100) /uL PT (10.1-12.7) SECONDS INR (0.9-1.3) APTT (26.4-36.2) SECONDS Sodium (137-145) mmol/L Potassium (3.4-5.1) mmol/L Chloride (98-107) mmol/L Carbon Dioxide (22-32) mmol/L BUN (7-17) mg/dL Creatinine (0.52-1.04) mg/dL Estimated GFR (>60) mL/min BUN/Creatinine Ratio (6-22) Glucose (80-110) mg/dL Lactate 1.8 (0.7-2.1) mmol/L Calcium (8.4-10.2) mg/dL Total Bilirubin (0.2-1.3) mg/dL AST (14-36) IU/L ALT (<35) IU/L Alkaline Phosphatase (38-126) U/L Total Creatine Kinase (30-135) U/L CK-MB (CK-2) (<2.37) ng/mL CK-MB (CK-2) Rel Index (1.5-5.0) % Troponin I (0.01-0.034) ng/mL Total Protein (6.3-8.2) g/dL Albumin (3.5-5.0) g/dL Globulin (1.7-4.1) g/dL Albumin/Globulin Ratio (1.0-2.8) Procalcitonin 0.12 (<0.5) ng/mL Urine Color Urine Appearance Urine pH (4.5-8.0) Ur Specific [place] (1.000-1.035) Urine Protein (Negative) Urine Glucose (UA) (Negative) g/dL Urine Ketones (NEGATIVE) Urine Occult Blood (Negative) Urine Nitrate (Negative) Urine Bilirubin (NEGATIVE) Urine Urobilinogen (0.2) E.U./dL Ur Leukocyte Esterase (NEGATIVE) Urine RBC (0-5/HPF) Urine WBC (0-5/HPF) Ur Squamous Epith Cells (0-5/HPF) Urine Bacteria (None) Ur Culture Indicated? SARS-CoV-2 (PCR) Negative (Negative) 01/02/21 Range/Units 08:27 WBC (4.5-11.0) X10^3/uL RBC (4.0-5.2) X10^6/uL Hgb (12.0-16.0) g/dL Hct (36-46) % MCV (80-100) fL MCH (26-34) PG MCHC (30-36) % RDW (11.6-14.8) % Plt Count (150-400) X10^3/uL Neut % (Auto) (50-75) % Lymph % (Auto) (25-40) % [place] % (Auto) (3-14) % Eos % (Auto) (2-4) % Baso % (Auto) (0-2) % Neut # (Auto) (6896-8841) /uL Lymph # (Auto) (7840-5286) /uL [place] # (Auto) (0-900) /uL Eos # (Auto) (0-450) /uL Baso # (Auto) (0-100) /uL PT (10.1-12.7) SECONDS INR (0.9-1.3) APTT (26.4-36.2) SECONDS Sodium (137-145) mmol/L Potassium (3.4-5.1) mmol/L Chloride (98-107) mmol/L Carbon Dioxide (22-32) mmol/L BUN (7-17) mg/dL Creatinine (0.52-1.04) mg/dL Estimated GFR (>60) mL/min BUN/Creatinine Ratio (6-22) Glucose (80-110) mg/dL Lactate (0.7-2.1) mmol/L Calcium (8.4-10.2) mg/dL Total Bilirubin (0.2-1.3) mg/dL AST (14-36) IU/L ALT (<35) IU/L Alkaline Phosphatase (38-126) U/L Total Creatine Kinase (30-135) U/L CK-MB (CK-2) (<2.37) ng/mL CK-MB (CK-2) Rel Index (1.5-5.0) % Troponin I (0.01-0.034) ng/mL Total Protein (6.3-8.2) g/dL Albumin (3.5-5.0) g/dL Globulin (1.7-4.1) g/dL Albumin/Globulin Ratio (1.0-2.8) Procalcitonin (<0.5) ng/mL Urine Color Yellow Urine Appearance Sl cloudy Urine pH 6.5 (4.5-8.0) Ur Specific [place] 1.010 (1.000-1.035) Urine Protein Negative (Negative) Urine Glucose (UA) Negative (Negative) g/dL Urine Ketones Negative (NEGATIVE) Urine Occult Blood 3+ H (Negative) Urine Nitrate Negative (Negative) Urine Bilirubin Negative (NEGATIVE) Urine Urobilinogen 0.2 (0.2) E.U./dL Ur Leukocyte Esterase Trace H (NEGATIVE) Urine RBC 10-30/hpf H (0-5/HPF) Urine WBC 1-5/hpf (0-5/HPF) Ur Squamous Epith Cells 1-5 /hpf (0-5/HPF) Urine Bacteria Many (>30) H (None) Ur Culture Indicated? Specimen cultured SARS-CoV-2 (PCR) (Negative) MDM Narrative Medical decision making narrative: Care is assumed. Nursing staff attempted to obtain a cath urine sample. The patient has significant labial excoriation and developing pressure sores over the posterior portion of her buttocks and it appears that she has been laying in stool and urine for an extended period of time. She was too tender to allow any type of f urther exam or catheterization. Will continue to try to obtain by urine sample via as clean a catch as possible. Nursing staff has done a nice job in cleaning her up as much as possible. Given her increase in confusion, global weakness, slight leukocytosis and extreme pain with any urination as well as the beginning of perineal skin breakdown and bedsores will begin ceftriaxone to treat of presumed urinary tract infection and will recommend hospitalization as she is quite literally unable to stand up or get out of bed due to her weakness and confusion. At this point, there is no evidence of sepsis. Hip x-ray and head CT are unremarkable with no evidence of fracture or acute bleed. Of this is reviewed with patient and she is amenable to this. [address] Holden. Accepts admit Discharge Plan Departure Patient Disposition: Admitted as Observation Clinical Impression: Acute UTI, Weakness, Acute confusion Admit Date/Time: 01/02/21 09:05 Admit Provider: Kalyan Holden
[2021-01-02 09:07] LABS: Appearance Urine UA SL CLOUDY; Bilirubin Urine UA NEGATIVE (NEGATIVE); Color Urine UA YELLOW; Glucose Urine UA NEGATIVE (Negative); Ketones Urine UA NEGATIVE (NEGATIVE); Leukocyte Esterase Urine UA TRACE (NEGATIVE); Nitrite Urine UA NEGATIVE (Negative); Occult Blood Urine UA 3+ (Negative); Protein Urine UA NEGATIVE (Negative); Urobilinogen Urine UA 0.2 E.U./dL (0.2)
[2021-01-02 09:09] LABS: pH Urine UA 6.5 (4.5-8.0)
[2021-01-02] MEDS: cefTRIAXone 2,000 MG in SODIUM CHLORIDE 0.9% 100 ML 200 ML IV (09:16)
[2021-01-02] MEDS: SODIUM CHLORIDE 0.9% 1,000 ML 150 ML IV (09:17)
[2021-01-02 09:20] LABS: RBC Urine 10-30/HPF (0-5/HPF); Squamous Epithelial Cell Urine 1-5 /HPF (0-5/HPF); WBC Urine 1-5/HPF (0-5/HPF)
[2021-01-02 09:21] LABS: Bacteria Urine Many (>30); Culture Indicated Urine Specimen Cultured
[2021-01-02 09:25] LABS: COVID19 - ADMIT (NP swab/PCR) Negative (Negative)
--- NOTE | 2021-01-02 10:17 | PT.IIE ---
Surgical History (Last Reviewed 01/02/21 @ 07:24 by Nelia Mustafa DO) S/P surgery on nasal septum (1969) Status post breast biopsy (1969) Status post cholecystectomy (1991) Status post hysterectomy with oophorectomy (1993) Medical History (Last Reviewed 01/02/21 @ 07:24 by Nelia Mustafa DO) Depression Diabetes mellitus Hyperlipidemia Hypertension PMR (polymyalgia rheumatica) Pulmonary embolism (2009) Warfarin anticoagulation (2011) Physical Therapy Inpatient Evaluation/Re-Eval M1 PT/OT-IP Prior Functional Status Start: 01/02/21 11:35 Freq: NEEDED Status: Active Protocol: Document 01/02/21 10:17 AB (Rec: 01/02/21 11:47 AB [id number]) Medical Review Prior Functional Status Medical History Reviewed Yes Communication able to make needs known Mobility and Gait pt stated that she is independent with all mobilities and ambulation without AD; from ER note: spouse assists pt at home and pt barely able to transfer Social History Household Members spouse Living Arrangements House Number of Floors (Floors) One Floor Number of Stairs To Enter/Railing? 1 step to enter Home Environment Standard Height Toilet,Walk in Shower,Tub/Shower M2 PT-IP Current Condition Start: 01/02/21 11:35 Freq: NEEDED Status: Active Protocol: Document 01/02/21 10:17 AB (Rec: 01/02/21 11:47 AB [id number]) Physical Therapy Current Condition Current Condition Evaluation Date 01/02/21 Treatment Diagnosis UTI; difficulty in walking Onset Date 01/02/21 Precautions Other Precautions falls M3 PT-IP Subjective Start: 01/02/21 11:35 Freq: NEEDED Status: Active Protocol: Document 01/02/21 10:17 AB (Rec: 01/02/21 11:47 AB [id number]) Subjective Physical Therapy Visit Type Type Initial Evaluation Visit Start Time 10:17 Visit Stop Time 10:50 Total Visit Minutes 33 Number of LEAD SETTER Visits 0 Physical Therapy Visit Comments Patient Comments pt initially agreeable to do PT but midway when getting out of bed became resistive but with encouragement and assist was able to complete PT session Therapy Pain Assessment Pain When Pain Assessed During Mobility Pain Present Pain Present Pain Reported Location Left Hip Scale Used pain scale not stated Description Chronic Pain Behaviors Guarding,Holding Area,Wincing Pain Management Techniques Distraction,Modification of Treatment,Re-positioning, Timing of Activity with Medications M4 PT-IP Mobility and Gait Start: 01/02/21 11:35 Freq: NEEDED Status: Active Protocol: Document 01/02/21 10:17 AB (Rec: 01/02/21 11:47 AB [email or web address]) PT-Bed Mobility Assessment Supine to Sit Supine to Sit Total Assistance,2 Person Assistance,Head of Bed Elevated,Bedrails PT-Transfer Assessment Sit to and From Stand Sit to and from Stand Maximum Assistance,2 Person Assistance,Use of Upper Extremities Equipment Transfer Assistive Device Gait Belt,Front Wheeled Walker Orthotic/Prosthetic Devices or Brace: No Transfers Transfer Destination Chair Transfer Technique Stand Step Pivot Transfer Ability Level of Assist Maximum Assistance,2 Person Assistance,Use of Upper Extremities Comments Mobility Comments completed supine to sit total A x 2 and max cues. pt c/o L hip pain and became resistive during mobility and needs encouragement and cues to complete task. pt was able to sit on EOB CGA. completed sit to stand from EOB max A x 2 and cues and completed step transfer using FWW max A x 2 and cues. pt with difficulty moving LE and taking steps. refused to ambulate. positioned pt on chair. call light and table placed within reach. Gait Assessment Comments Gait Comments pt refused PT-Balance Assessment Sitting Balance and Reactions Static Sitting Balance Ability Good Dynamic Sitting Balance Ability Fair Standing Balance and Reactions Static Standing Balance Ability Poor Dynamic Standing Balance Ability Poor Device Used FWW M5 PT-IP Objective Assessments Start: 01/02/21 11:35 Freq: NEEDED Status: Active Protocol: Document 01/02/21 10:17 AB (Rec: 01/02/21 11:47 AB [id number]) Orientation Orientation/Cognition Level of Alertness Alert Orientation Name Safety Awareness Decreased Safety Awareness Memory Description Short Term Impaired Gross Range of Motion Lower Extremity ROM Assessment Left Impaired Impairments pain limiting movement Strength Lower Extremity Strength Assessment Left Impaired Hip 3+/5 Knee 3+/5 Muscle Tone Muscle Tone WNL Yes M6 PT-IP Treatment Start: 01/02/21 11:35 Freq: NEEDED Status: Active Protocol: Document 01/02/21 10:17 AB (Rec: 01/02/21 11:47 AB [email or web address]) Physical Therapy Treatment Education Education Provided Safety M7 PT-IP Assessment and Plan Start: 01/02/21 11:35 Freq: NEEDED Status: Active Protocol: Document 01/02/21 10:17 AB (Rec: 01/02/21 11:47 AB [email or web address]) PT Summary Assessment and Plan Potential Rehabilitation Potential Fair Status of Condition at Evaluation Evolving Summary Impairments Pain,ROM,Strength,Balance, Coordination,Sensation,Tone, Cognition,Bed Mobility, Transfers,Gait,Activity Tolerance Assessment Summary pt requiring max A x 2 for mobility. pt can be resistive and agitated and with c/o L hip pain with mobility. from EMR, pt spouse assists pt at home. at this time, pt requires 2 person assist and will need SNF rehab to improve mobility. Goals Bed Mobility Goal Contact Guard Assistance Transfer Goal Contact Guard Assistance,Front Wheeled Walker Gait Goal Contact Guard Assistance,Front Wheel Walker Gait Distance 25 Other Goals improve bed mobility, transfers using fWW SBA improve ambulation using FWW SBA 50 ft Days to Meet Goals 10 Frequency of Treatment Frequency Of Treatment Once a Day Treatment Plan Physical Therapy Treatment Plan Bed Mobility Training,Transfer Training,Gait Training, Therapeutic Exercise,Balance Retraining,Discharge Planning, Neuromuscular Re-ed, Coordination Retraining Precautions Other Precautions falls Recommendations To Nursing Amount of Assist Needed 2 Person Assist Discharge Recommendations PT Discharge Recommendations SNF Rehab Transportation Needs at Discharge Wheelchair/Cabulance
--- NOTE | 2021-01-02 12:45 | PC.NURSE ---
Patient removed IV herself. notified. Attempted to restart IV twice, patient becoming agitated. Yelling I'm going home attempting to get out of chair. Reassured patient and attempted to reorient her to current situation, patient argumentative. MD ok with no IV access at this time. Attempted to contact patients x 2. MD eventually able to reach spouse. Reassured patient that her will be here shortly. Chair alarm on. Door remains open.
[2021-01-02] MEDS: LORazepam 1 MG TABLET PO (12:53)
[2021-01-02] MEDS: levoFLOXacin 250 MG TABLET PO (12:55)
--- NOTE | 2021-01-02 15:10 | CM.IDA ---
Initial DCP Assessment Note Patient is an 80-year-old female with history of pulmonary embolism on Coumadin and dementia presenting with fall from home. She was trying to get out of bed this morning to use the restroom but slipped out of bed and landed on her knees. PCP: Mushtaq Buckner Payer: [facility] Discussed case w/Dr Holden; patient likely will not be safe to return home w/spouse, patient attempting to get OOB, requiring 1:[address] Holden provides son Kevin's number as P# [phone], unsure spouse's cognitive status Placed call to son Kevin, to gather additional information, introduced role. Kevin lives near [facility], patient/spouse's other adult son, Jonatan Hahn P# [phone] lives in [place]. Their father, Jonatan Hawthorne, P# [phone] is the primary cg for patient, who recently requires full care, including barbara-care d/t patient's incontinence. This HEADING MACHINE OPERATOR sees a visit documented w/ Dr Buckner 3.22.21 confirming homebound status to begin Home Health care, family was asked to find and coordinate w/ a HH agency of their choice. Asked son what he had done to coordinate additional care for patient and spouse? Spouse Jonatan has allowed [facility] to come approx 2-3 hours daily. Spouse Jonatan is cognitively- alert and oriented but does have physical limitations, making full care of patient very difficult. Adult sons work time analysis clerk. This HEADING MACHINE OPERATOR advised son that higher level of residential care ie memory care unit would be advisable, son requests this HEADING MACHINE OPERATOR contact spouse Jonatan to review options. Jonatan expected to arrive at bedside at 1530, will plan to review DCP options EFRAIN Curran Discharge Planning/Care Management CM Discharge Assessment Start: 01/02/21 15:06 Freq: Status: Active Protocol: Document 01/02/21 15:07 RAMYA (Rec: 01/02/21 15:10 RAMYA [id number]) Discharge Planning Assessment Assigned Head Turning Machine Operator EFRAIN Flores DPOA/Assigned Designee Name Jonatan Hawthorne, spouse Contact Information [phone] Advance Directives? No History Provided By Family Member,Medical Record Prior Living Arrangements House Household Members spouse Type of transporation used prior to Relies on Others admit Needs Assistance With Bathing,Grooming,Meal Prep, Toileting,Managing Medications ,Home Chores / Shopping Comment See Narrative Barriers to Discharge Yes Comment Patient would benefit from respite or jail memory care unit Transportation Arrangement TBD
--- NOTE | 2021-01-02 15:19 | CM.DPNOTE ---
Faxed referral packet to Katerina at [facility] for possible respite requested by Bernadette. Received fax confirmation. Nelsy Cash CM Asst.
--- NOTE | 2021-01-02 17:30 | PM.HP.1 ---
History of Present Illness History of Present Illness Date Patient Seen: 01/02/21 Time Patient Seen: 10:32 Chief complaint: Slide to floor - Bilateral knee pain Narrative: Ms. Hawthorne is an 80W with PMH of dementia with behavioral disturbances, PE not on coumadin per notes, DM, hypothyroidism, morbid obesity, hyperlipidemia, documented PMR who comes in after a fall. Patient lives with and has been having progressive dementia and progressive weakness. For at least a few months she has been having incontinence of urine and feces, sitting in a chair, unable to make it to the bathroom, refusing to wear a diaper. She has had difficulty with bathing, she usually has difficulty transferring from a bed to a chair. Today she had a fall out of bed and landed on her knees. She and her were unable to get her up. She had no head strike. She was found by EMS to be incontinent. She was unable to provide any further information secondary to her dementia and confusion. Per the her confusion and behavioral issues have been present for months at least. In the ED, gillian was noted to have normal vitals except for hypertension. Labs notable for WBC of 14.7, hgb 11.8, INR 1.1, creatinine 1.02, lactate 1.8. Troponin negative. Procalcitonin 0.12. UA shows trace leuk esterase, many bacteria, 1-5 WBCs. She was noted to have a sacral decubitus pressure injury. She was given antibiotics and was unable to get out of bed. She was very confused. did not want to take her home and did not think he could care for her currently. She was admitted for further treatment. Patient History Medical History Depression Diabetes mellitus Hyperlipidemia Hypertension PMR (polymyalgia rheumatica) Pulmonary embolism (2009) Warfarin anticoagulation (2011) Surgical History S/P surgery on nasal septum (1969) Status post breast biopsy (1969) Status post cholecystectomy (1991) Status post hysterectomy with oophorectomy (1993) Family & Social History Family History Other Factor V Leiden Social History: household members spouse Prior Living Arrangements House Safety & Behavioral: Feels Safe in Current Yes Environment Tobacco & Substance use: Smoking Status Never smoker Substance Use Type does not use Meds Home Medications and Allergies Home Medications Medication Instructions Recorded Confirmed Type blood sugar diagnostic #100 each 09/18/18 01/02/21 Rx Truplus Lancets #100 each 09/21/18 01/02/21 Rx aspirin 81 mg tablet,delayed 81 mg PO DAILY #90 tab 04/09/20 01/02/21 Rx release levothyroxine 150 mcg tablet 150 mcg PO QAM #90 tab 04/09/20 01/02/21 Rx lisinopril 20 mg tablet 20 mg PO QDAY #90 tab 04/09/20 01/02/21 Rx metformin 500 mg tablet,extended 1,500 mg PO DAILY #270 tab 04/09/20 01/02/21 Rx release 24 hr glipizide 10 mg tablet, extended 10 mg PO BID #180 tab 10/20/20 01/02/21 Rx release 24 hr Allergies Allergy/AdvReac Type Severity Reaction Status Date / Time atorvastatin [ATORVASTATIN] Allergy Mild PURITIS IN Verified 10/06/20 10:52 LOWER EXTREMITIES erythromycin base Allergy Mild YEAST Verified 10/06/20 10:52 [From ERYTHROCIN] INFECTION rosuvastatin [ROSUVASTATIN] Allergy Mild PAIN IN Verified 10/06/20 10:52 LOWER EXTREMITIES simvastatin [SIMVASTATIN] Allergy Mild PAIN IN Verified 10/06/20 10:52 LOWER EXTREMITIES Review of Systems Review of Systems Narrative: 14 systems reviewed and negative aside from HPI Exam Vital Signs (past 8 hours): - 01/02/21 09:45 01/02/21 15:36 01/02/21 16:37 Temperature 97.3 F L 97.6 F Pulse Rate 78 85 Respiratory Rate 16 18 Blood Pressure 128/53 L 166/67 H Pulse Oximetry 98 94 96 Oxygen Delivery Method Room Air Oxygen Flow Rate 0 Narrative Exam Narrative: GEN: mild agitation, unkempt and poor hygiene HEENT: moist mucous membranes, PERRL NECK: no JVD, trachea midline CV: regular rate and rhythm with no murmurs PULM: clear bilaterally with no wheezes, rhonchi, rales EXT: warm and well perfused with no edema NEURO: moving all extremities with no gross deficits SKIN: no rashes appreciated PSYCH: confused, not oriented, mild agitation Objective Labs Result Diagrams: 01/02/21 04:50 01/02/21 04:50 Labs: Laboratory Results - last 24 hr 01/02/21 01/02/21 01/02/21 04:50 04:50 04:50 WBC 14.7 H RBC 4.19 Hgb 11.8 L Hct 36.2 MCV 86.4 MCH 28.1 MCHC 32.6 RDW 16.0 H Plt Count 299 Neut % (Auto) 68.0 Lymph % (Auto) 23.6 L [place] % (Auto) 6.0 Eos % (Auto) 1.9 L Baso % (Auto) 0.5 Neut # (Auto) 12110 H Lymph # (Auto) 3500 [place] # (Auto) 900 Eos # (Auto) 300 Baso # (Auto) 100 PT 11.9 INR 1.1 APTT 29 Sodium 137 Potassium 4.4 Chloride 102 Carbon Dioxide 28 BUN 24 H Creatinine 1.02 Estimated GFR 52.0 L BUN/Creatinine Ratio 23.5 H Glucose 124 H Lactate Calcium 9.3 Total Bilirubin 0.4 AST 34 ALT 14 Alkaline Phosphatase 77 Total Creatine Kinase 123 CK-MB (CK-2) 1.40 CK-MB (CK-2) Rel Index 1.1 L Troponin I < 0.012 Total Protein 6.5 Albumin 3.7 Globulin 2.8 Albumin/Globulin Ratio 1.3 Procalcitonin Urine Color Urine Appearance Urine pH Ur Specific [place] Urine Protein Urine Glucose (UA) Urine Ketones Urine Occult Blood Urine Nitrate Urine Bilirubin Urine Urobilinogen Ur Leukocyte Esterase Urine RBC Urine WBC Ur Squamous Epith Cells Urine Bacteria Ur Culture Indicated? SARS-CoV-2 (PCR) 01/02/21 01/02/21 01/02/21 04:50 04:50 08:27 WBC RBC Hgb Hct MCV MCH MCHC RDW Plt Count Neut % (Auto) Lymph % (Auto) [place] % (Auto) Eos % (Auto) Baso % (Auto) Neut # (Auto) Lymph # (Auto) [place] # (Auto) Eos # (Auto) Baso # (Auto) PT INR APTT Sodium Potassium Chloride Carbon Dioxide BUN Creatinine Estimated GFR BUN/Creatinine Ratio Glucose Lactate 1.8 Calcium Total Bilirubin AST ALT Alkaline Phosphatase Total Creatine Kinase CK-MB (CK-2) CK-MB (CK-2) Rel Index Troponin I Total Protein Albumin Globulin Albumin/Globulin Ratio Procalcitonin 0.12 Urine Color Urine Appearance Urine pH Ur Specific [place] Urine Protein Urine Glucose (UA) Urine Ketones Urine Occult Blood Urine Nitrate Urine Bilirubin Urine Urobilinogen Ur Leukocyte Esterase Urine RBC Urine WBC Ur Squamous Epith Cells Urine Bacteria Ur Culture Indicated? SARS-CoV-2 (PCR) Negative 01/02/21 08:27 WBC RBC Hgb Hct MCV MCH MCHC RDW Plt Count Neut % (Auto) Lymph % (Auto) [place] % (Auto) Eos % (Auto) Baso % (Auto) Neut # (Auto) Lymph # (Auto) [place] # (Auto) Eos # (Auto) Baso # (Auto) PT INR APTT Sodium Potassium Chloride Carbon Dioxide BUN Creatinine Estimated GFR BUN/Creatinine Ratio Glucose Lactate Calcium Total Bilirubin AST ALT Alkaline Phosphatase Total Creatine Kinase CK-MB (CK-2) CK-MB (CK-2) Rel Index Troponin I Total Protein Albumin Globulin Albumin/Globulin Ratio Procalcitonin Urine Color Yellow Urine Appearance Sl cloudy Urine pH 6.5 Ur Specific [place] 1.010 Urine Protein Negative Urine Glucose (UA) Negative Urine Ketones Negative Urine Occult Blood 3+ H Urine Nitrate Negative Urine Bilirubin Negative Urine Urobilinogen 0.2 Ur Leukocyte Esterase Trace H Urine RBC 10-30/hpf H Urine WBC 1-5/hpf Ur Squamous Epith Cells 1-5 /hpf Urine Bacteria Many (>30) H Ur Culture Indicated? Specimen cultured SARS-CoV-2 (PCR) Assessment & Plan Assessment & Plan narrative: Ms. Hawthorne is an 80W with PMH dementia with behavioral disturbances, comes in after a fall, unable to ambulate, and with metabolic encephalopathy with UTI. 1. Metabolic encephalopathy due to presumed UTI -she is very confused with behavioral disturbances, no family at bedside -per notes and discussing with over the phone much of this is chronic -possibly worsened due to infection -for now continue with oral levofloxacin, patient refusing IV -follow up final urine cultures 2. Dementia with behavioral disturbances -has been progressively getting worse for months per notes and -not on any medications at home per my review of records -may benefit from antipsychotic for agitation, will start low dose olanzapine PRN and consider making dose standing 3. Hip pain, after fall -xray shows no evidence of fracture -patient not in significant pain, suspicion for occult fracture low -if pain uncontrolled will get further imaging with CT or MRI -pain control with lidocaine and tylenol for now 4. Type 2 Diabetes, not on insulin -hold home oral medications -ordered low dose insulin sliding scale 5. Hypothyroid -continue synthroid 6. Hypertension -continue lisinopril 7. Questionable PMR -not on any treatment currently -patient demented, and can not relay symptoms well but suspicion for PMR causing debility is low 8. History of DVT -not on coumadin per last PCP notes 9. Sacral decubitus ulcer -no evidence of infection -nursing to turn to keep off ulcer DIET: Diabetic DVT ppx: Lovenox SC Code: Full, proxy is Jonatan will need to confirm code status with him Quality MIPS - Admit I confirm the patient?s Advance Care Plan is present, Code status is documented, Surrogate decision maker is in patient?s record [If Yes, STOP here]: Yes
[2021-01-02] MEDS: OLANZapine 2.5 MG TABLET PO (18:59)
[2021-01-03 04:25] VITALS: BP 160/67; PULSE 86; RESP 16; TEMP 36.1
[2021-01-03 05:36] LABS: Add Manual Diff / Slide Review NO; Basophils Absolute Auto 100 /uL (0-100); Basophils Percent Auto 0.9 % (0-2); Eosinophils Absolute Auto 300 /uL (0-450); Eosinophils Percent Auto 2.2 % (2-4); Hematocrit 35.5 % (36-46); Hemoglobin 11.4 g/dL (12.0-16.0); Lymphocytes Absolute Auto 3900 /uL (1100-4500); Lymphocytes Percent Auto 28.8 % (25-40); Mean Corpuscular HGB Conc 32.1 % (30-36); Mean Corpuscular Hemoglobin 27.5 PG (26-34); Mean Corpuscular Volume 85.6 fL (80-100); Monocytes Absolute Auto 900 /uL (0-900); Monocytes Percent Auto 6.7 % (3-14); Neutrophils Absolute Auto 8300 /uL (1500-7000); Neutrophils Percent Auto 61.4 % (50-75); Platelet Count 297 X10^3/uL (150-400); Red Blood Cell Count 4.15 X10^6/uL (4.0-5.2); Red Cell Distribution Width 15.9 % (11.6-14.8); White Blood Cell Count 13.5 X10^3/uL (4.5-11.0)
[2021-01-03 05:42] LABS: Blood Urea Nitrogen 20 mg/dL (7-17); Calcium 9.3 mg/dL (8.4-10.2); Carbon Dioxide 30 mmol/L (22-32); Chloride 103 mmol/L (98-107); Estimated Glomerular Filt Rate 59.3 mL/min (>60); Glucose 102 mg/dL (80-110); HEMOLYSIS < 15 (0-50); Potassium 4.4 mmol/L (3.4-5.1); Sodium 140 mmol/L (137-145)
[2021-01-03] MEDS: LEVOTHYROXINE 150 MCG TABLET PO (05:52)
[2021-01-03 06:32] LABS: Magnesium 1.6 mg/dL (1.6-2.3)
[2021-01-03 07:00] VITALS: O2SAT 92
--- NOTE | 2021-01-03 07:33 | PM.PN.1 ---
Exam Vital Signs (past 8 hours): - 01/02/21 23:40 01/02/21 23:50 01/03/21 04:25 Temperature 97.5 F L 97.0 F L Pulse Rate 96 H 90 86 Respiratory Rate 16 16 Blood Pressure 180/71 H 161/76 H 160/67 H Pulse Oximetry 95 98 Oxygen Delivery Method Room Air Oxygen Flow Rate 0 Objective Labs Result Diagrams: 01/03/21 05:15 01/03/21 05:15 Labs: Laboratory Results - last 24 hr 01/02/21 01/02/21 01/03/21 08:27 08:27 05:15 WBC 13.5 H RBC 4.15 Hgb 11.4 L Hct 35.5 L MCV 85.6 MCH 27.5 MCHC 32.1 RDW 15.9 H Plt Count 297 Neut % (Auto) 61.4 Lymph % (Auto) 28.8 [place] % (Auto) 6.7 Eos % (Auto) 2.2 Baso % (Auto) 0.9 Neut # (Auto) 8300 H Lymph # (Auto) 3900 [place] # (Auto) 900 Eos # (Auto) 300 Baso # (Auto) 100 Sodium Potassium Chloride Carbon Dioxide BUN Creatinine Estimated GFR BUN/Creatinine Ratio Glucose Calcium Magnesium Urine Color Yellow Urine Appearance Sl cloudy Urine pH 6.5 Ur Specific [place] 1.010 Urine Protein Negative Urine Glucose (UA) Negative Urine Ketones Negative Urine Occult Blood 3+ H Urine Nitrate Negative Urine Bilirubin Negative Urine Urobilinogen 0.2 Ur Leukocyte Esterase Trace H Urine RBC 10-30/hpf H Urine WBC 1-5/hpf Ur Squamous Epith Cells 1-5 /hpf Urine Bacteria Many (>30) H Ur Culture Indicated? Specimen cultured SARS-CoV-2 (PCR) Negative 01/03/21 01/03/21 05:15 05:15 WBC RBC Hgb Hct MCV MCH MCHC RDW Plt Count Neut % (Auto) Lymph % (Auto) [place] % (Auto) Eos % (Auto) Baso % (Auto) Neut # (Auto) Lymph # (Auto) [place] # (Auto) Eos # (Auto) Baso # (Auto) Sodium 140 Potassium 4.4 Chloride 103 Carbon Dioxide 30 BUN 20 H Creatinine 0.91 Estimated GFR 59.3 L BUN/Creatinine Ratio 22.0 Glucose 102 Calcium 9.3 Magnesium 1.6 Urine Color Urine Appearance Urine pH Ur Specific [place] Urine Protein Urine Glucose (UA) Urine Ketones Urine Occult Blood Urine Nitrate Urine Bilirubin Urine Urobilinogen Ur Leukocyte Esterase Urine RBC Urine WBC Ur Squamous Epith Cells Urine Bacteria Ur Culture Indicated? SARS-CoV-2 (PCR) [facility] Medical History Depression Diabetes mellitus Hyperlipidemia Hypertension PMR (polymyalgia rheumatica) Pulmonary embolism (2009) Warfarin anticoagulation (2011) Surgical History S/P surgery on nasal septum (1969) Status post breast biopsy (1969) Status post cholecystectomy (1991) Status post hysterectomy with oophorectomy (1993) Family History Other Factor V Leiden Social History household members: spouse Smoking Status: Never smoker Assessment & Plan Assessment & Plan narrative: 1. Basilar stroke, acute, present on admission -as evidence by CT -patient was unarousable upon exam appears in no distress or discomfort. GCS:3 -patient admitted under comfort measures 2 atrial fibrillation controlled with pacemaker, chronic, present on admission-well controlled -holding patient's metoprolol, isosorbide 3. Hypertension in the setting of congestive heart failure preserved EF 55-60% without exacerbation, chronic, present on admission -will hold patient's metoprolol, bumetanide, pravastatin-until such time as mental status change with protected airway 4. History of Type 2 diabetes with neuropathy, acute on chronic, present on admission-well controlled -Last A1C 12/20/2020 4.7% 5. Hypothyroidism, chronic, present on admission -holding patient's levothyroxine 6.GERD, chronic, present on admission-control unknown Holding patient's Protonix 7. Depression, chronic, present on admission-control unknown Unable to assess depression or anxiety, holding patient's Prozac 5. Alcohol abuse with concern for withdrawal seizure, -started on CIWA protocol -give IV ativan in setting of possible seizure -if worsening symptoms start librium -holding thiamine folate Code status: DNR Surrogate decision maker: jessie Davis COVID PCR: Negative VTE/DVT prophylaxis: Medication contraindicated due to acute stroke, SCDs Only
[2021-01-03 07:56] VITALS: BP 150/72; PULSE 79; RESP 17; TEMP 36.8; O2SAT 98
--- NOTE | 2021-01-03 08:16 | PC.NURSE ---
Addendum entered by Ike Pena R.N. 01/03/21 14:14: Pt has orders for D/C and BLS is coming at 16:00. and son will meet Pt. at home. Addendum entered by Ike Pena R.N. 01/03/21 12:57: down to DI at 12:30 for a MRI and possibly CT of left hip. Original Note: Pt arousable alert to conversation and conversant. expects to go home today though no orders written. P follows commands offers no overt complaint. Dr. Wong in to see Pt. Pt taking b'fast at present.
[2021-01-03] MEDS: levoFLOXacin 250 MG TABLET PO (08:40)
[2021-01-03] MEDS: ENOXAPARIN 40 MG/0.4 ML SYRINGE SUBCUT (08:40)
[2021-01-03] MEDS: ASPIRIN EC 81 MG TABLET PO (08:42)
[2021-01-03] MEDS: OLANZapine 2.5 MG TABLET PO (08:42)
[2021-01-03 08:46] VITALS: BP 150/72; PULSE 79
[2021-01-03] MEDS: LIDOCAINE PATCH 1 EACH ADH..PATCH TOP (08:46)
[2021-01-03] MEDS: lisinopriL 20 MG TABLET PO (08:46)
--- NOTE | 2021-01-03 09:51 | DI.MRI.S_ITS ---
PROCEDURE: MR HIP LT WO CON INDICATIONS: Hip pain with negative Xray TECHNIQUE: Noncontrast coronal T1 spin echo and STIR through the bony pelvis. Coronal and axial T2 fast spin echo with fat saturation, sagittal T1 spin echo, and oblique axial T2 fast spin echo with fat saturation through the hip. COMPARISON: None. FINDINGS: Image quality: Excellent. Bones and joints: Bone marrow of the pelvic ring and proximal femurs show normal signal throughout. No intraosseous lesions or fractures. No avascular necrosis of the femoral heads. The visualized lower lumbar spine appears normally aligned. Tendons and ligaments: The gluteus medius and minimus tendons appear intact, without associated muscle atrophy. The nearby proximal iliotibial band also appears intact. There is a tear of the ileus psoas tendon at its insertion on the lesser trochanter with extensive muscle edema and retraction of the tendon. The muscle edema extends into the iliacus muscle. The origin of the hamstring tendon is intact at the ischial tuberosity, as well as the associated sacrotuberous ligament. The straight and reflected heads of the rectus femoris muscle origin appear intact, as well as the conjoint tendon. The ligamentum teres appears intact where visualized. Labrum and cartilage: The acetabular labrum appears intact in the absence of intra-articular contrast. Cartilage surface of the femoral head appears of normal thickness. The alpha angle of the femur is within normal limits at less than 55 degrees. Soft tissues: Visualized muscles demonstrate normal bulk and internal signal. Quadratus femoris muscle demonstrates no internal edema to suggest ischiofemoral impingement. The proximal sciatic neurovascular bundle appears normal adjacent to the hamstring tendons. No free pelvic fluid. Bladder wall thickness is normal. Genitourinary structures and bowel loops appear normal where visualized. IMPRESSION: 1. Ileus psoas tendon tear at its insertion on the lesser trochanter, with associated tendinous retraction and muscular edema. 2. No evidence acute bony abnormality of the left hip. Dictated by: Jesus Livingston M.D. on 01/03/2021 at 12:33 Approved by: Jesus Livingston M.D. on 01/03/2021 at 12:44
--- NOTE | 2021-01-03 10:01 | PT.IPTN ---
Physical Therapy Treatment Note M2 PT-IP Current Condition Start: 01/02/21 11:35 Freq: NEEDED Status: Active Protocol: Document 01/02/21 10:17 AB (Rec: 01/02/21 11:47 AB [id number]) Physical Therapy Current Condition Current Condition Evaluation Date 01/02/21 Treatment Diagnosis UTI; difficulty in walking Onset Date 01/02/21 Precautions Other Precautions falls M3 PT-IP Subjective Start: 01/02/21 11:35 Freq: NEEDED Status: Active Protocol: Document 01/03/21 09:20 MB (Rec: 01/03/21 10:01 MB [id number]) Subjective Physical Therapy Visit Type Type Treatment Note Visit Start Time 09:17 Visit Stop Time 09:40 Total Visit Minutes 23 Number of WEATHERIZATION SPECIALIST Visits 0 Physical Therapy Visit Comments Patient Comments PT checks on pt who is agreeable to PT and states, My is coming to get me . PT then speaks again with nsg and HUMAN SERVICES INSTRUCTOR and then comes back for treatment. Pt states, I think someone else is coming, too. Nsg then arrives with warm blankets. Therapy Pain Assessment Pain When Pain Assessed During Mobility Pain Present Pain Present Pain Reported Location Left Hip Scale Used Pt cannot rate pain Description Acute,With Movement Pain Behaviors Calling Out,Facial Grimacing, Guarding,Holding Area Pain Management Techniques Elevation,Re-positioning M4 PT-IP Mobility and Gait Start: 01/02/21 11:35 Freq: NEEDED Status: Active Protocol: Document 01/03/21 09:20 MB (Rec: 01/03/21 10:01 MB [id number]) PT-Bed Mobility Assessment Supine to Sit Supine to Sit Moderate Assistance,2 Person Assistance,Head of Bed Elevated,Bedrails Scooting Scooting to Edge of Bed Maximum Assistance PT-Transfer Assessment Sit to and From Stand Sit to and from Stand Minimal Assistance,1 Person Assistance,Use of Upper Extremities Equipment Transfer Assistive Device Gait Belt,Front Wheeled Walker Orthotic/Prosthetic Devices or Brace: No Transfers Transfer Destination Chair Transfer Technique Stand Step Pivot Transfer Ability Level of Assist Moderate Assistance,1 Person Assistance,Use of Upper Extremities Comments Mobility Comments Pt requires cues to reach for bed rail on the left left, HOB increased. PT assists with scooting left leg to the left (it is edematous and painful with pt reporting pain at the left hip joint). PT provides mod A to scoot the left leg and cues to move to EOB. PT pulls pad to help scoot pt's hips to EOB after her left ankle is hooked around the EOB to help with movement (PT and pt are careful not to provoke the left hip pain). Pt often states, Ooh and ow with touch of left leg and movement , especially shifting weight to the left and WB through the left leg. Pt requires tactile and VCs not to reach for walker once sitting EOB and she can maintain static sitting balance with hands on the mattress. She requires +1 assist to move to standing (+2 assist nearby if needed and it is not today). Pt cannot clear left foot for stepping and tends to scoot it to the left to take about 4 scooting steps with the RW to the left to chair. PT assist with walker and cues for stepping and hand placement. Ed pt to reach back to the right for chair before sitting and she is able to sit far enough back in the chair that she does not have to scoot once sitting and in fact, she cannot scoot given c/o left hip pain once up. Left with socks off d/t edema, pillow under legs and legs elevated, call hung and HUMAN SERVICES INSTRUCTOR nearby. Gait Assessment Comments Gait Comments Pt cannot gait d/t pain and possible LLE (hip) injury PT-Balance Assessment Sitting Balance and Reactions Static Sitting Balance Ability Good Dynamic Sitting Balance Ability Fair Standing Balance and Reactions Static Standing Balance Ability Poor Dynamic Standing Balance Ability Poor Device Used RW M5 PT-IP Objective Assessments Start: 01/02/21 11:35 Freq: NEEDED Status: Active Protocol: Document 01/02/21 10:17 AB (Rec: 01/02/21 11:47 AB [id number]) Orientation Orientation/Cognition Level of Alertness Alert Orientation Name Safety Awareness Decreased Safety Awareness Memory Description Short Term Impaired Gross Range of Motion Lower Extremity ROM Assessment Left Impaired Impairments pain limiting movement Strength Lower Extremity Strength Assessment Left Impaired Hip 3+/5 Knee 3+/5 Muscle Tone Muscle Tone WNL Yes M6 PT-IP Treatment Start: 01/02/21 11:35 Freq: NEEDED Status: Active Protocol: Document 01/03/21 09:20 MB (Rec: 01/03/21 10:01 MB [id number]) Physical Therapy Treatment Other Treatments Other Treatment Performed Bed mobility, transfers and attempted gait M7 PT-IP Assessment and Plan Start: 01/02/21 11:35 Freq: NEEDED Status: Active Protocol: Document 01/03/21 09:20 MB (Rec: 01/03/21 10:01 MB [id number]) PT Summary Assessment and Plan Potential Rehabilitation Potential Fair Status of Condition at Evaluation Evolving Summary Impairments Pain,ROM,Strength,Balance, Cognition,Bed Mobility, Transfers,Gait,Activity Tolerance Progress Towards Goals Slow Progress due to Pain,Slow Progress due to Medical Issues,Slow Progress due to Activity Tolerance Assessment Summary Pt requires less physical assist with bed mobility today . She guards LLE at all times and c/o left hip pain. It is much more edematous than the right LE and though left hip x -ray was negative, PT is concerned about underlying injury given consistent guarding and c/o pain with mobility and especially weight shifting to that side and attempted WB to the left in standing. She cannot take a full step d/t this pain and this is a limiting factor for acute and post-acute PT. Will con't efforts. Goals Bed Mobility Goal Contact Guard Assistance Transfer Goal Contact Guard Assistance,Front Wheeled Walker Gait Goal Contact Guard Assistance,Front Wheel Walker Gait Distance 25 Other Goals improve bed mobility, transfers using fWW SBA improve ambulation using FWW SBA 50 ft Days to Meet Goals 10 Frequency of Treatment Frequency Of Treatment Once a Day Treatment Plan Physical Therapy Treatment Plan Bed Mobility Training,Transfer Training,Gait Training, Therapeutic Exercise,Balance Retraining,Discharge Planning, Neuromuscular Re-ed, Coordination Retraining Precautions Other Precautions Fall risk, left LE guarding after injury Recommendations To Nursing Amount of Assist Needed 1 Person Assist Discharge Recommendations PT Discharge Recommendations SNF Rehab Transportation Needs at Discharge Wheelchair/Cabulance
--- NOTE | 2021-01-03 13:13 | PM.DS.1 ---
History of Present Illness History of Present Illness Date Patient Seen: 01/03/21 Chief complaint: Slide to floor - Bilateral knee pain Narrative: Ms. Hawthorne is an 80W with PMH of dementia with behavioral disturbances, PE not on coumadin per notes, DM, hypothyroidism, morbid obesity, hyperlipidemia, documented PMR who comes in after a fall. Patient lives with and has been having progressive dementia and progressive weakness. For at least a few months she has been having incontinence of urine and feces, sitting in a chair, unable to make it to the bathroom, refusing to wear a diaper. She has had difficulty with bathing, she usually has difficulty transferring from a bed to a chair. Today she had a fall out of bed and landed on her knees. She and her were unable to get her up. She had no head strike. She was found by EMS to be incontinent. She was unable to provide any further information secondary to her dementia and confusion. Per the her confusion and behavioral issues have been present for months at least. In the ED, h was noted to have normal vitals except for hypertension. Labs notable for WBC of 14.7, hgb 11.8, INR 1.1, creatinine 1.02, lactate 1.8. Troponin negative. Procalcitonin 0.12. UA shows trace leuk esterase, many bacteria, 1-5 WBCs. She was noted to have a sacral decubitus pressure injury. She was given antibiotics and was unable to get out of bed. She was very confused. did not want to take her home and did not think he could care for her currently. She was admitted for further treatment. Discharge Providers Provider Date of admission: 01/02/21 09:05 Discharge Date: 01/03/21 Primary care physician: Mushtaq Buckner MD Consults: 01/02/21 06:43 Consult to WEBLOGIC ADMINISTRATOR - Mail Courier Stat Comment: home services WEBLOGIC ADMINISTRATOR Consult: [facility] Res Need Consult to Physical Therapy Evaluate & Treat Comment: Physician Instructions: Evaluate and Treat 01/02/21 09:36 Consult to Physical Therapy Evaluate & Treat Comment: Physician Instructions: Evaluate and Treat 01/03/21 12:39 Consult to Home Health Routine Comment: Reason For Exam: Home health upon DC Discharge provider: Michael Wong MD Summary Hospital Course Discharge Diagnosis: UTI - Gram Negative Rods Atrial Fibrillation and Hypertension in the setting of congestive heart failure preserved EF 55-60% History of Type 2 diabetes with neuropathy Hypothyroidism GERD Depression Alcohol abuse with concern for withdrawal seizure Hospital Course: She has continued to be confused and weak. Placement in a assisted living, adult family home or [facility] facility was discussed and recommended. Her indicated that despite his bad knees, despite him not being able to come back to the hospital because of that, despite her weakness, that he wished her to come home. Other family members, understandably, preferred placement options. This was discussed extensively with social work therapist. Pending the results of the hip MRI she will be discharged home where she is likely to return to her very immobilized, unhygienic, less than optimally cared for state later today. Treating the urinary tract infection may be helpful with her decreased mobility . UTI - Gram Negative Rods -Culture/sensitivities still pending at time of discharge -Levofloxacin 250 mg QD for 6 more days Atrial fibrillation controlled with pacemaker, chronic, present on admission-well controlled -Resuming metoprolol, isosorbide at discharge Hypertension in the setting of congestive heart failure preserved EF 55-60% without exacerbation, chronic, present on admission -Resume metoprolol, bumetanide, pravastatin History of Type 2 diabetes with neuropathy, acute on chronic, present on admission-well controlled -Last A1C 12/20/2020 4.7% Hypothyroidism, chronic, present on admission -Resume levothyroxine GERD, chronic, present on admission-control unknown -resuming Protonix Depression, chronic, present on admission-control unknown -resuming Prozac Alcohol abuse with concern for withdrawal seizure, -started on [facility] protocol -Olanzapine 2.5 mg BID for one more week Code status: DNR Surrogate decision maker: jessie Davis Status at Discharge Cognitive/behavioral status at discharge: confused and at baseline, confused Functional status at discharge: wheelchair bound Overall status at discharge: patient is progressing back to baseline Time Spent with Patient Time spent: Greater than 30 minutes Exam Vital Signs (past 8 hours): - 01/03/21 07:56 01/03/21 08:46 Temperature 98.3 F Pulse Rate 79 79 Respiratory Rate 17 Blood Pressure 150/72 H 150/72 H Pulse Oximetry 98 Oxygen Delivery Method Room Air Oxygen Flow Rate 0 Narrative Exam Narrative: She is reactively animated today, friendly in funny. She notices to me ?I am going home. ? Physical therapy is noting continued left hip pain so a precautionary hip MRI will be done. She has significant facial hair which needs to be addressed. Heart is regular rate and rhythm without murmur Lungs are clear to auscultation bilaterally Abdomen is soft, nontender, no organomegaly Extremities have no ankle edema Objective Labs Result Diagrams: 01/03/21 05:15 01/03/21 05:15 Labs: Laboratory Results - last 24 hr 01/03/21 01/03/21 01/03/21 05:15 05:15 05:15 WBC 13.5 H RBC 4.15 Hgb 11.4 L Hct 35.5 L MCV 85.6 MCH 27.5 MCHC 32.1 RDW 15.9 H Plt Count 297 Neut % (Auto) 61.4 Lymph % (Auto) 28.8 [place] % (Auto) 6.7 Eos % (Auto) 2.2 Baso % (Auto) 0.9 Neut # (Auto) 8300 H Lymph # (Auto) 3900 [place] # (Auto) 900 Eos # (Auto) 300 Baso # (Auto) 100 Sodium 140 Potassium 4.4 Chloride 103 Carbon Dioxide 30 BUN 20 H Creatinine 0.91 Estimated GFR 59.3 L BUN/Creatinine Ratio 22.0 Glucose 102 Calcium 9.3 Magnesium 1.6 PFSH Medical History Depression Diabetes mellitus Hyperlipidemia Hypertension PMR (polymyalgia rheumatica) Pulmonary embolism (2009) Warfarin anticoagulation (2011) Surgical History S/P surgery on nasal septum (1969) Status post breast biopsy (1969) Status post cholecystectomy (1991) Status post hysterectomy with oophorectomy (1993) Family History Other Factor V Leiden Social History household members: spouse Smoking Status: Never smoker Discharge Plan Discharge Plan Patient Disposition: Home Provider Discharge Comment: Follow up with Dr. Buckner next week Discharge orders & Medications Prescriptions: New olanzapine 2.5 mg Tablet 2.5 mg PO BID Qty: 30 RF: 0 levofloxacin 250 mg Tablet 250 mg PO DAILY Qty: 6 RF: 0 Continued (DME) True Metrix Glucose Test Strip strip See Dose Instructions .ROUTE .MEDSUPPLY Qty: 100 RF: 1 (DME) Truplus Lancets MIS 28G 0 .Route .MEDSUPPLY Qty: 100 RF: 11 glipizide 10 mg tablet extended release 24hr 10 mg PO BID Qty: 180 RF: 1 aspirin 81 mg tablet,delayed release (DR/EC) 81 mg PO DAILY Qty: 90 RF: 1 metformin 500 mg tablet extended release 24 hr 1,500 mg PO DAILY Qty: 270 RF: 1 levothyroxine 150 mcg tablet 150 mcg PO QAM Qty: 90 RF: 3 lisinopril 20 mg tablet 20 mg PO QDAY Qty: 90 RF: 3 Follow up/Referrals: Mushtaq Buckner MD [Primary Care Provider] - Diet/Activity/Treatments Diet: Carb-consistent/Diabetic Discharge Data Primary Care Provider: Mushtaq Buckner Attending Provider: Kalyan Holden
--- NOTE | 2021-01-03 14:53 | CM.DPNOTE ---
DC Note Working on coordination of DCP throughout the day today. Spoke w/December at [facility]; private pay option? December explained they could not accommodate patient w/dementia and potential for behavioral disturbance. Spoke w/spouse Jonatan this morning, then w/son Kevin. Explained that patient is medically stable for DC today and reviewed DCP options. Spouse Jonatan interested in bringing patient home and suggests BLS transport as the safest transport home. explained that BLS transport would likely not be covered by [employer], and if it were, there was likely to be an out of pocket cost. Jonatan felt his [employer] and secondary coverage would cover this transport. BLS arranged for 1615 p/u. Meanwhile, placed call to approx 10 in home cg agencies, w/Jonatan's permission, starting w/Maria Luisa Zelaya, attempted to secure emergency caregivers for this evening. No agency called was able to accommodate this request. All either had no availability over the w/e or had wait lists for new referrals. Updated patient and son Kevin. Placed call to [facility], w/spouse's permission (Alpha per Calendar rotation) and their HH referral dept had gone for the w/e, returning Tuesday. Placed call to [facility] and they had RN/PT available end of next week. Lastly, called [facility] was hopeful to get an RN to patient's home Tuesday. E faxed referral including completed and signed F2F requesting RN/PT/DRAPERY HAND/[employer] and HH order . Faxed DC Summary to [facility] as well. Discussed above w/ son Kevin Hawthorne who explained he and his Dad were in contact all day. Kevin expected to be at the hospital this afternoon as BLS transport arrived to get patient home. Kevin planned to help his Dad get patient into her home and settled. Kevin explained to this [employer] that spouse was now agreeable to getting patient to a respite stay at [facility]; explained this will not happen today and Kevin stated understanding. Provided Katerina's number at [facility] and clinical had already been faxed. Son expected to contact her and was appreciative Placed call to Katerina at [facility], discussed referral and Katerina appreciative, expected to hear directly from family Updated RENITA Ramires and Dr Wong. JW
== END 2021-01-03 16:05 | disposition home or self-care (01) ==
LOC: ED 08:57 → AC 09:05
PROVIDERS: Emergency Medicine; Nurse Practitioner Family; Admitting Provider Internal Medicine; Emergency Provider Emergency Medicine; PCP Student in an Organized Health Care Education/Training Program; Referring Provider Emergency Medicine; Visit Provider Internal Medicine
DX: N39.0 Urinary tract infection, site not specified (principal); M25.561 Pain in right knee; M25.562 Pain in left knee; W06.XXXA Fall from bed, initial encounter; Y92.002 Bathroom of unspecified non-institutional (private) residence as the place of occurrence of the external cause; R15.9 Full incontinence of feces; R32 Unspecified urinary incontinence; F03.91 Unspecified dementia, unspecified severity, with behavioral disturbance; R45.1 Restlessness and agitation; E11.40 Type 2 diabetes mellitus with diabetic neuropathy, unspecified; L89.159 Pressure ulcer of sacral region, unspecified stage; I11.0 Hypertensive heart disease with heart failure; I50.9 Heart failure, unspecified; R53.1 Weakness; E78.5 Hyperlipidemia, unspecified; E03.9 Hypothyroidism, unspecified; F10.10 Alcohol abuse, uncomplicated; F32.9 Major depressive disorder, single episode, unspecified; K21.9 Gastro-esophageal reflux disease without esophagitis; Z79.84 Long term (current) use of oral hypoglycemic drugs; Z79.01 Long term (current) use of anticoagulants; Z95.0 Presence of cardiac pacemaker; Z86.711 Personal history of pulmonary embolism; Z20.822 Contact with and (suspected) exposure to COVID-19
CPT/HCPCS: 36415; 70450; 73502; 73721; 80048; 80053; 81001; 82550; 82553; 82962; 83605; 83735; 84145; 84484; 85025; 85610; 85730; 87040; 87077; 87086; 87186; 87635; 93005; 93010; 96361; 96365; 96372; 97162; 97530; 99284; C9803; G0378; J0696; J1650; J1815

== ENCOUNTER → 2021-01-14 07:41 | Outpatient (ROUT) | payer MEDICARE, OTHER, SELFPAY ==
[2021-01-02 09:46] VITALS: BMI 46.0
[2021-01-14 08:12] LABS: Add Manual Diff / Slide Review NO; Basophils Absolute Auto 100 /uL (0-100); Basophils Percent Auto 0.7 % (0-2); Eosinophils Absolute Auto 200 /uL (0-450); Eosinophils Percent Auto 1.4 % (2-4); Hematocrit 36.6 % (36-46); Hemoglobin 11.7 g/dL (12.0-16.0); Lymphocytes Absolute Auto 3400 /uL (1100-4500); Lymphocytes Percent Auto 20.9 % (25-40); Mean Corpuscular Hemoglobin 27.8 PG (26-34); Mean Corpuscular Volume 87.1 fL (80-100); Monocytes Absolute Auto 1000 /uL (0-900); Neutrophils Absolute Auto 11600 /uL (1500-7000); Platelet Count 360 X10^3/uL (150-400); Red Cell Distribution Width 16.1 % (11.6-14.8); White Blood Cell Count 16.4 X10^3/uL (4.5-11.0)
[2021-01-14 08:50] LABS: BUN Creatinine Ratio 21.8 (6-22); Blood Urea Nitrogen 27 mg/dL (7-17); Calcium 9.6 mg/dL (8.4-10.2); Carbon Dioxide 27 mmol/L (22-32); Chloride 103 mmol/L (98-107); Estimated Glomerular Filt Rate 41.5 mL/min (>60); Glucose 178 mg/dL (80-110); HEMOLYSIS < 15 (0-50); Potassium 4.4 mmol/L (3.4-5.1); Sodium 139 mmol/L (137-145)
== END ==
PROVIDERS: PCP Student in an Organized Health Care Education/Training Program; Visit Provider Internal Medicine
DX: R19.7 Diarrhea, unspecified (principal)
CPT/HCPCS: 36415; 80048; 85025

== ENCOUNTER → 2021-02-25 00:09 | Outpatient (ROUT) | payer MEDICARE, OTHER, SELFPAY ==
[2021-01-02 09:46] VITALS: BMI 46.0
[2021-02-25 01:30] LABS: Clostridium Difficile Tox PCR Negative for C. diff (Negative)
[2021-02-25 09:34] LABS: Add Manual Diff / Slide Review NO; Basophils Absolute Auto 100 /uL (0-100); Basophils Percent Auto 0.6 % (0-2); Eosinophils Absolute Auto 600 /uL (0-450); Eosinophils Percent Auto 5.2 % (2-4); Hematocrit 39.2 % (36-46); Hemoglobin 12.4 g/dL (12.0-16.0); Lymphocytes Absolute Auto 3100 /uL (1100-4500); Lymphocytes Percent Auto 29.2 % (25-40); Mean Corpuscular HGB Conc 31.7 % (30-36); Mean Corpuscular Hemoglobin 27.3 PG (26-34); Mean Corpuscular Volume 86.4 fL (80-100); Monocytes Absolute Auto 600 /uL (0-900); Monocytes Percent Auto 5.4 % (3-14); Neutrophils Absolute Auto 6300 /uL (1500-7000); Neutrophils Percent Auto 59.6 % (50-75); Platelet Count 309 X10^3/uL (150-400); Red Blood Cell Count 4.54 X10^6/uL (4.0-5.2); Red Cell Distribution Width 16.2 % (11.6-14.8); White Blood Cell Count 10.6 X10^3/uL (4.5-11.0)
[2021-02-25 09:43] LABS: Hemoglobin A1C% w Est Avg Glu 7.7 % (4.0-6.0)
[2021-02-25 09:57] LABS: Alanine Aminotransferase 14 IU/L (<35); Albumin 3.2 g/dL (3.5-5.0); Albumin Globulin Ratio 1.1 (1.0-2.8); Alkaline Phosphatase 146 U/L (38-126); Aspartate Aminotransferase 30 IU/L (14-36); BUN Creatinine Ratio 17.7 (6-22); Bilirubin Total 0.3 mg/dL (0.2-1.3); Blood Urea Nitrogen 14 mg/dL (7-17); Calcium 9.1 mg/dL (8.4-10.2); Carbon Dioxide 31 mmol/L (22-32); Chloride 104 mmol/L (98-107); Estimated Glomerular Filt Rate > 60.0 mL/min (>60); Globulin 2.8 g/dL (1.7-4.1); Glucose 184 mg/dL (80-110); HEMOLYSIS < 15 (0-50); Potassium 3.9 mmol/L (3.4-5.1); Sodium 140 mmol/L (137-145)
[2021-02-25 10:26] LABS: Thyroid Stimulating Hormone 2.86 uIU/mL (0.47-4.68)
== END ==
PROVIDERS: PCP Student in an Organized Health Care Education/Training Program; Visit Provider Nurse Practitioner Family
DX: R19.7 Diarrhea, unspecified (principal)
CPT/HCPCS: 36415; 80053; 83036; 84443; 85025; 87493

== ENCOUNTER → 2021-05-06 08:18 | Outpatient (ROUT) | payer MEDICARE, OTHER, SELFPAY ==
[2021-01-02 09:46] VITALS: BMI 46.0
[2021-05-06 08:47] LABS: Add Manual Diff / Slide Review NO; Basophils Absolute Auto 0 /uL (0-100); Basophils Percent Auto 0.4 % (0-2); Eosinophils Absolute Auto 500 /uL (0-450); Eosinophils Percent Auto 4.4 % (2-4); Hematocrit 39.6 % (36-46); Hemoglobin 12.6 g/dL (12.0-16.0); Lymphocytes Absolute Auto 3300 /uL (1100-4500); Mean Corpuscular HGB Conc 31.8 % (30-36); Mean Corpuscular Hemoglobin 27.3 PG (26-34); Mean Corpuscular Volume 85.8 fL (80-100); Monocytes Absolute Auto 700 /uL (0-900); Monocytes Percent Auto 6.2 % (3-14); Neutrophils Absolute Auto 7100 /uL (1500-7000); Platelet Count 278 X10^3/uL (150-400); Red Blood Cell Count 4.61 X10^6/uL (4.0-5.2); Red Cell Distribution Width 17.5 % (11.6-14.8); White Blood Cell Count 11.7 X10^3/uL (4.5-11.0)
[2021-05-06 08:57] LABS: Alanine Aminotransferase 6 IU/L (<35); Albumin 2.9 g/dL (3.5-5.0); Albumin Globulin Ratio 1.2 (1.0-2.8); Alkaline Phosphatase 84 U/L (38-126); Aspartate Aminotransferase 21 IU/L (14-36); BUN Creatinine Ratio 11.3 (6-22); Bilirubin Total 0.2 mg/dL (0.2-1.3); Blood Urea Nitrogen 7 mg/dL (7-17); Calcium 8.4 mg/dL (8.4-10.2); Carbon Dioxide 31 mmol/L (22-32); Chloride 103 mmol/L (98-107); Estimated Glomerular Filt Rate > 60.0 mL/min (>60); Globulin 2.5 g/dL (1.7-4.1); Glucose 116 mg/dL (80-110); HEMOLYSIS < 15 (0-50); Sodium 141 mmol/L (137-145); Total Protein 5.4 g/dL (6.3-8.2)
[2021-05-06 09:30] LABS: Thyroid Stimulating Hormone 0.708 uIU/mL (0.47-4.68)
[2021-05-06 09:45] LABS: Vitamin B12 422 pg/mL (239-931)
== END ==
PROVIDERS: PCP Student in an Organized Health Care Education/Training Program; Visit Provider Nurse Practitioner Family
DX: E11.9 Type 2 diabetes mellitus without complications (principal); R19.7 Diarrhea, unspecified; E03.9 Hypothyroidism, unspecified; R63.0 Anorexia
CPT/HCPCS: 36415; 80053; 82607; 84443; 85025

== ENCOUNTER → 2021-05-13 08:27 | Outpatient (ROUT) | payer MEDICARE, OTHER, SELFPAY ==
[2021-01-02 09:46] VITALS: BMI 46.0
[2021-05-13 09:42] LABS: HEMOLYSIS 19 (0-50); Potassium 4.4 mmol/L (3.4-5.1)
== END ==
PROVIDERS: PCP Student in an Organized Health Care Education/Training Program; Visit Provider Nurse Practitioner Family
DX: E87.6 Hypokalemia (principal)
CPT/HCPCS: 36415; 84132

== ENCOUNTER → 2021-06-10 15:51 | Outpatient (ROUT) | payer MEDICARE, OTHER, SELFPAY ==
[2021-01-02 09:46] VITALS: BMI 46.0
[2021-06-10 16:12] LABS: Hemoglobin A1C% w Est Avg Glu 6.6 % (4.0-6.0)
== END ==
PROVIDERS: PCP Student in an Organized Health Care Education/Training Program; Visit Provider Nurse Practitioner Family
DX: E11.9 Type 2 diabetes mellitus without complications (principal)
CPT/HCPCS: 36415; 83036

== ENCOUNTER → 2021-07-23 19:43 | Outpatient (ROUT) | payer MEDICARE, OTHER, SELFPAY ==
[2021-01-02 09:46] VITALS: BMI 46.0
[2021-07-26 09:06] LABS: COVID19 Sendout Not Detected (Not Detect)
== END ==
PROVIDERS: PCP Student in an Organized Health Care Education/Training Program; Visit Provider Internal Medicine
DX: Z20.822 Contact with and (suspected) exposure to COVID-19 (principal)
CPT/HCPCS: 87635